=== PATIENT | male | born 1935 | race Caucasian/White ===

== ENCOUNTER 2018-11-24 13:21 | Inpatient (IN) | payer OTHER, MEDICARE ==
--- OUTSIDE RECORDS SUMMARY | 2018-11-24 13:23 | XMS REPORT | Clinical Summary ---
:1935 Author Organization [facility] Address [address] [place] [address] Care Team Providers Name Role Phone Unavailable Primary Care Provider Unavailable Allergies Active Allergy Reactions Severity Noted Date Comments Hydralazine Analogues Rash Low 06/23/2016 Medications Medication Sig Dispensed Refills Start Date End Date Status amLODIPine (NORVASC) 5 0 03/14/2016 Active MG tablet atorvastatin (LIPITOR) 40 mg daily . 0 06/03/2016 Active 40 MG tablet triamterene-hydrochloro 0 03/28/2016 Active thiazide (MAXZIDE-25) 37.5-25 mg per tablet venlafaxine 150 mg nightly . 0 05/14/2016 Active (EFFEXOR-XR) 150 MG 24 hr capsule levothyroxine Take 100 mcg by 0 Active (SYNTHROID, LEVOTHROID) mouth Every 100 MCG tablet morning on an empty stomach. aspirin 81 MG EC tablet Take 81 mg by 0 Active mouth daily. XARELTO 10 mg Tab Take 2 tablets 90 tablet 0 06/27/2016 Active tablet (20 mg total) by mouth daily with dinner. Active Problems Problem Noted Date Atrial fibrillation, unspecified type 06/24/2016 Atrial fibrillation 06/21/2016 Social History Tobacco Use Types Packs/Day Years Used Date Former Smoker Alcohol Use Drinks/Week oz/Week Comments No Sex Assigned at Date Recorded Not on file Job Start Date Occupation Industry Not on file Not on file Not on file Travel History Travel Start Travel End No recent travel history available. Last Filed Vital Signs Not on file Plan of Treatment Not on file Results Not on fileafter 11/23/2017 Insurance Payer Benefit Plan / Group Subscriber ID Type Phone Address MEDICARE MEDICARE A B xxxxxxxxxx Medicare MCR SUPPLEMENT/INDIVIDUAL AARP/[facility] xxxxxxxxxxx Medigap Advance Directives For more information, please contact:[place] [address] [address] [facility] [place] [phone] Code Status Date Activated Date Inactivated Comments Full Code 06/21/2016 10:22 PM 06/27/2016 7:26 PM This code status was determined by: Patient
[2018-11-24] MEDS ORDERED: NA CHLORIDE 0.9% 1,000 ML ONE ×2 (14:17→19:46)
--- NOTE | 2018-11-24 14:27 | RAD REPORT ---
EXAM DESCRIPTION: RAD - Chest Single View - 11/24/2018 1:56 pm CLINICAL HISTORY: COPD Chest pain. COMPARISON: Chest Single View dated 02/08/2017; Chest Single View dated 10/06/2016; Chest Single View dated 10/05/2016; CHEST PA AND LAT 2 VIEW dated 08/29/2011 FINDINGS: Portable technique limits examination quality. The lungs are grossly clear. The heart is mildly prominent size. No displaced fractures. IMPRESSION: No acute intrathoracic process suspected.
[2018-11-24 14:41] LABS: Absolute Lymphocytes (CBC) 1.5 K/uL (0.7-4.9); Basophils % 0.8 % (0-1.3); Eosinophils % 0.2 % (0-4.4); Lymphocytes % 16.9 % (15.3-44.8); Monocytes % 14.9 % (3.3-12.3); RBC Red Blood Cell Count 4.34 M/uL (4.33-5.43)
[2018-11-24 14:48] LABS: Protime INR 1.79
[2018-11-24 15:04] LABS: Albumin 3.4 g/dL (3.4-5.0); Bilirubin Direct 0.2 mg/dL (0-0.2); Bilirubin Total 0.7 mg/dL (0.2-1.0); Potassium 4.3 mmol/L (3.5-5.1); Troponin (Emerg Dept Use Only) 0.23 ng/mL (0.0-0.045)
[2018-11-24 15:47] LABS: Arterial Blood Carboxyhemoglob 0.9 % (0-1.5); Blood Gas Oxyhemoglobin 92.4 % (94-97)
[2018-11-24] MEDS ORDERED: IPRATROPIUM BROM 0.5MG/2.5ML ONE ×2 (15:53→22:10)
[2018-11-24] MEDS ORDERED: ALBUTEROL 2.5 MG/3 ML NEB SOL ONE ×2 (15:53→22:09)
[2018-11-24 16:20] LABS: Urine Bacteria LOADED /HPF (NONE SEEN)
[2018-11-24 16:21] LABS: Urine Culture Reflex Order REFLEXED
[2018-11-24 16:22] LABS: Urine Blood 2+ (NEG); Urine Glucose NEGATIVE (NEG); Urine Protein 2+ (NEG); Urine Specific Gravity 1.025 (1.005-1.030); Urine pH 5.5 (5.0-7.0)
--- NOTE | 2018-11-24 16:42 | EDPHYS ---
Physician Documentation [facility] Name: Bill Groves Age: 83 yrs Sex: Male : 1935 Arrival Date: 11/24/2018 Time: 13:24 Bed 14 Private MD: Pete lAmeida T ED Physician Santo Cuenca HPI: 11/24 17:45 This 83 yrs old Male presents to ER via Wheelchair with complaints of gs Weakness. 17:45 Onset: The symptoms/episode began/occurred 2 day(s) ago. gs 18:22 The patient presents to the emergency department with weakness of the entire body, gs generalized weakness. Associated signs and symptoms: Pertinent positives: falling. Severity of symptoms: At their worst the symptoms were severe in the emergency department the symptoms are unchanged. The patient has experienced similar episodes in the past, a few times. Historical: - Allergies: 13:27 HYDRALAZINE; la1 - PMHx: 13:27 Atrial Fib; CVA x4; Hypertension; la1 - Immunization history:: Adult Immunizations up to date. - Social history:: Smoking status: Patient/guardian denies using tobacco. - Ebola Screening: : No symptoms or risks identified at this time. ROS: 18:26 All other systems are negative. gs Exam: 18:26 Head/Face: Normocephalic, atraumatic. Eyes: Pupils equal round and reactive to light, gs extra-ocular motions intact. Lids and lashes normal. Conjunctiva and sclera are non-icteric and not injected. Cornea within normal limits. Periorbital areas with no swelling, redness, or edema. ENT: Nares patent. No nasal discharge, no septal abnormalities noted. Tympanic membranes are normal and external auditory canals are clear. Oropharynx with no redness, swelling, or masses, exudates, or evidence of obstruction, uvula midline. Mucous membranes moist. Neck: Trachea midline, no thyromegaly or masses palpated, and no cervical lymphadenopathy. Supple, full range of motion without nuchal rigidity, or vertebral point tenderness. No Meningismus. Chest/axilla: Normal chest wall appearance and motion. Nontender with no deformity. No lesions are appreciated. 18:26 Abdomen/GI: Soft, non-tender, with normal bowel sounds. No distension or tympany. No guarding or rebound. No evidence of tenderness throughout. Back: No spinal tenderness. No costovertebral tenderness. Full range of motion. Skin: Warm, dry with normal turgor. Normal color with no rashes, no lesions, and no evidence of cellulitis. MS/ Extremity: Pulses equal, no cyanosis. Neurovascular intact. Full, normal range of motion. Neuro: Awake and alert, GCS 15, oriented to person, place, time, and situation. Cranial nerves II-XII grossly intact. Motor strength 5/5 in all extremities. Sensory grossly intact. Cerebellar exam normal. Normal gait. 18:26 Constitutional: The patient appears alert, awake. 18:26 Cardiovascular: Rate: normal, Rhythm: irregularly irregular, Pulses: no pulse deficits are appreciated, Edema: 1+ edema to level of left ankle and right ankle. 18:26 ECG was reviewed by the Attending Physician. 18:26 Respiratory: the patient does not display signs of respiratory distress, Respirations: normal, Breath sounds: rhonchi, that are moderate, are heard diffusely. Vital Signs: 13:29 BP 80 / 51; Pulse 72; Resp 16; Temp 97.4; Pulse Ox 95% on R/A; Weight 79.38 kg; Height la1 5 ft. 9 in. (175.26 cm); 14:29 BP 92 / 52; Pulse 60; Resp 17; Temp 97.7(TE); Pulse Ox 96% on R/A; Pain 0/10; rb1 15:23 BP 142 / 94; Pulse 72; Resp 18; Temp 97.8(O); Pulse Ox 97% on R/A; mh5 16:33 BP 102 / 61; Pulse 88; Resp 19; Temp 98.1(TE); Pulse Ox 99% on R/A; mh5 17:30 BP 108 / 63; Pulse 81; Resp 18; Temp 97.9(TE); Pulse Ox 96% on R/A; Pain 4/10; rb1 18:41 BP 101 / 80; Pulse 95; Resp 20; Temp 98.6(TE); Pulse Ox 97% on R/A; mh5 19:00 BP 84 / 37; Pulse 88; Resp 26 S; Pulse Ox 96% on R/A; cc3 19:30 BP 70 / 50; Pulse 84; Resp 26 S; Temp 97.6(O); Pulse Ox 97% on R/A; cc3 19:43 BP 76 / 53; Pulse 81; Resp 25 S; Temp 97.6(O); Pulse Ox 94% on R/A; cc3 19:54 BP 88 / 56; Pulse 81; Resp 20 S; Pulse Ox 96% on R/A; cc3 20:00 BP 88 / 51; Pulse 76; Resp 24 S; Pulse Ox 96% on R/A; cc3 20:09 BP 102 / 52; Pulse 73; Resp 22 S; Pulse Ox 97% on R/A; cc3 20:30 BP 110 / 55; Pulse 71; Resp 19 S; Pulse Ox 96% on R/A; cc3 21:30 BP 107 / 50; Pulse 70; Resp 20 S; Pulse Ox 96% on R/A; cc3 22:05 BP 105 / 57; Pulse 73; Resp 20 S; Pulse Ox 96% on R/A; cc3 13:29 Body Mass Index 25.84 (79.38 kg, 175.26 cm) la1 MDM: 14:29 Patient medically screened. 18:26 Data reviewed: vital signs, nurses notes, old medical records, lab test result(s), EKG. gs Response to treatment: the patient's symptoms have markedly improved after treatment, and as a result, I will admit patient. ED course: mi,weakness,bronchitis,sepsis,dehydration. 11/24 13:43 Order name: Basic Metabolic Panel 11/24 13:43 Order name: Blood Culture Adult (2) 11/24 13:43 Order name: CBC with Diff 11/24 13:43 Order name: CPK 11/24 13:43 Order name: Lactate; Complete Time: 15:09 11/24 13:43 Order name: LFT's; Complete Time: 15:09 11/24 13:43 Order name: Lipase; Complete Time: 15:09 11/24 13:43 Order name: Procalcitonin; Complete Time: 15:44 11/24 13:43 Order name: Protime (+inr); Complete Time: 14:55 11/24 13:43 Order name: Troponin (emerg Dept Use Only); Complete Time: 15:09 11/24 13:43 Order name: Urine Microscopic Only; Complete Time: 16:25 11/24 13:44 Order name: Basic Metabolic Panel; Complete Time: 15:09 EDOR 11/24 13:44 Order name: Blood Culture EDOR 11/24 13:44 Order name: CBC with Automated Diff; Complete Time: 14:55 EDOR 11/24 13:43 Order name: Chest Single View XRAY; Complete Time: 14:29 11/24 13:43 Order name: Accucheck; Complete Time: 14:51 11/24 13:43 Order name: Cardiac monitoring; Complete Time: 14:51 11/24 13:43 Order name: EKG - Nurse/Tech; Complete Time: 15:50 11/24 13:43 Order name: IV Saline Lock - Large Bore; Complete Time: 14:51 11/24 13:43 Order name: Labs collected and sent; Complete Time: 14:51 11/24 13:43 Order name: O2 Per Protocol; Complete Time: 14:51 11/24 13:47 Order name: Creatine Phosphokinase; Complete Time: 15:09 EDOR 11/24 15:07 Order name: ABG 11/24 15:36 Order name: Urine Dipstick--Ancillary (enter results); Complete Time: 16:25 ms 11/24 16:23 Order name: Urine Culture [facility] 11/24 13:43 Order name: O2 Sat Monitoring; Complete Time: 14:51 11/24 13:43 Order name: Urine Dipstick-Ancillary (obtain specimen); Complete Time: 15:35 gs EC:26 Rate is 89 beats/min. Rhythm is irregularly irregular. QRS interval is normal. QT gs interval is normal. T waves are Flattened. Clinical impression: Abnormal EKG without significant change and Atrial Fibrillation. Interpreted by me. Administered Medications: 14:25 Drug: NS 0.9% 1000 ml {Note: right upper arm.} Route: IV; Rate: 1 bolus; Site: Other; rb1 15:50 Follow up: IV Status: Completed infusion rb1 15:49 Drug: Albuterol 2.5 mg Route: Inhalation; rb1 15:49 Drug: AtroVENT Aerosol 0.5 mg Route: Inhalation; rb1 16:47 Drug: Tylenol 650 mg Route: PO; rb1 17:16 Follow up: Response: No adverse reaction; Pain is decreased rb1 17:09 Drug: Rocephin 1 grams {Note: Dr. Cuenca ordered to given the Rocephin without the 2nd rb1 set of Blood Cultures being drawn.} Route: IV; Rate: calculated rate; Site: right antecubital; 17:40 Follow up: Response: No adverse reaction; IV Status: Completed infusion rb1 Disposition: 11/24/18 16:41 Hospitalization ordered by Lucy Desai for Inpatient Admission. Preliminary diagnosis are Non-ST elevation (NSTEMI) myocardial infarction, Acute bronchitis, Urinary tract infection, site not specified, Hypotension. - Bed requested for Intensive Care Unit. - Status is Inpatient Admission. cc3 - Condition is Stable. - Problem is new. - Symptoms have improved. UTI on Admission? Yes Critical care time excluding procedures: 16:38 Critical care time: Bedside Care: 10 minutes, Consultation: 10 minutes, Family gs Intervention: 10 minutes. Total time: 30 minutes Signatures: Dispatcher [employer] EDMS Miryam Conway ms, Lee, RN RN laTania Vang RN RN Gosia Hill RN RN rb1 Santo Cuenca MD MD Masha Reynolds cc3 Corrections: (The following items were deleted from the chart) 16:42 16:41 Hospitalization Ordered by Lucy Desai MD for Inpatient Admission. Preliminary diagnosis is Non-ST elevation (NSTEMI) myocardial infarction; Acute bronchitis; Urinary tract infection, site not specified. Bed requested for Telemetry/MedSurg (Inpatient). Status is Inpatient Admission. Condition is Stable. Problem is new. Symptoms have improved. UTI on Admission? Yes. 18:36 16:42 11/24/2018 16:41 Hospitalization Ordered by Lucy Desai MD for Inpatient ms Admission. Preliminary diagnosis is Non-ST elevation (NSTEMI) myocardial infarction; Acute bronchitis; Urinary tract infection, site not specified; Hypotension. Bed requested for Telemetry/MedSurg (Inpatient). Status is Inpatient Admission. Condition is Stable. Problem is new. Symptoms have improved. UTI on Admission? Yes. 21:19 18:36 11/24/2018 16:41 Hospitalization Ordered by Lucy Desai MD for Inpatient cg Admission. Preliminary diagnosis is Non-ST elevation (NSTEMI) myocardial infarction; Acute bronchitis; Urinary tract infection, site not specified; Hypotension. Bed requested for Telemetry/MedSurg (Inpatient). Status is Inpatient Admission. Condition is Stable. Problem is new. Symptoms have improved. UTI on Admission? Yes. ms 22:14 21:19 11/24/2018 16:41 Hospitalization Ordered by Lucy Desai MD for Inpatient cc3 Admission. Preliminary diagnosis is Non-ST elevation (NSTEMI) myocardial infarction; Acute bronchitis; Urinary tract infection, site not specified; Hypotension. Bed requested for Intensive Care Unit. Status is Inpatient Admission. Condition is Stable. Problem is new. Symptoms have improved. UTI on Admission? Yes. cg
--- NOTE | 2018-11-24 16:42 | ER ---
Nurse's Notes [facility] Name: Bill Groves Age: 83 yrs Sex: Male : 1935 Arrival Date: 11/24/2018 Time: 13:24 Bed 14 Private MD: Pete Almeida T Diagnosis: Non-ST elevation (NSTEMI) myocardial infarction;Acute bronchitis;Urinary tract infection, site not specified;Hypotension Presentation: 11/24 13:27 Presenting complaint: Child states: Increased difficulty in transferring, some la1 weakness, and at home his BP was 79/50s. He has also had a cough. Transition of care: patient was not received from another setting of care. Onset of symptoms was November 24, 2018. Risk Assessment: Do you want to hurt yourself or someone else? Patient reports no desire to harm self or others. Initial Sepsis Screen: Does the patient meet any 2 criteria? No. Patient's initial sepsis screen is negative. Does the patient have a suspected source of infection? No. Patient's initial sepsis screen is negative. Care prior to arrival: None. 13:27 Method Of Arrival: Wheelchair la1 13:27 Acuity: ANDI 2 la1 Historical: - Allergies: 13:27 HYDRALAZINE; la1 - PMHx: 13:27 Atrial Fib; CVA x4; Hypertension; la1 - Immunization history:: Adult Immunizations up to date. - Social history:: Smoking status: Patient/guardian denies using tobacco. - Ebola Screening: : No symptoms or risks identified at this time. Screenin:35 Abuse screen: Denies threats or abuse. Nutritional screening: No deficits noted. rb1 Tuberculosis screening: No symptoms or risk factors identified. 19:00 Fall Risk Ambulatory Aid- None/Bed Rest/Nurse Assist (0 pts). Gait- Weak (10 pts.). cc3 Mental Status- Oriented to own ability (0 pts). Assessment: 13:35 General: Appears in no apparent distress. comfortable, Behavior is calm, cooperative, rb1 Denies fever. Pain: Denies pain. Neuro: Level of Consciousness is awake, alert, obeys commands, Oriented to person, place, time, situation. Neuro: Reports weakness generalized weakness. Had trouble getting up this morning. Cardiovascular: Capillary refill < 3 seconds is brisk in bilateral fingers. Respiratory: Airway is patent Respiratory effort is even, unlabored, Respiratory pattern is regular, symmetrical. GI:. : incontinence. Derm: Skin is pink, warm \T\ dry. Musculoskeletal: Range of motion: limited in left arm. 14:30 Reassessment: Patient appears in no apparent distress at this time. No changes from rb1 previously documented assessment. Family at bedside. 15:28 Reassessment: Patient appears in no apparent distress at this time. Patient and/or rb1 family updated on plan of care and expected duration. Pain level reassessed. Patient is alert, oriented x 3, equal unlabored respirations, skin warm/dry/pink. Family at bedside. 16:27 Reassessment: Patient appears in no apparent distress at this time. No changes from rb1 previously documented assessment. Family at bedside. 17:10 Reassessment: Dr. Cuenca notified that we are unable to collect a second set of blood rb1 cultures due to the pt. being a hard stick. Received order to administer the Rocephin without it. I called the lab to notify them that the second set of cultures was canceled per Dr. Cuenca. 18:10 Reassessment: Patient appears in no apparent distress at this time. Patient and/or rb1 family updated on plan of care and expected duration. Pain level reassessed. Patient is alert, oriented x 3, equal unlabored respirations, skin warm/dry/pink. Family at bedside. 19:15 Reassessment: Patient and/or family updated on plan of care and expected duration. Pain cc3 level reassessed. Patient is alert, oriented x 3, equal unlabored respirations, skin warm/dry/pink. Received this male patient from morning shift DANG Elise as a case of generalized weakness, blood pressure has been constantly on the low side as endorsed. Encouraged patient to lie flat on his bed. General: Appears in no apparent distress. uncomfortable, Behavior is calm, cooperative, appropriate for age. Pain: Complains of pain in back. Neuro: Level of Consciousness is awake, alert, obeys commands, Oriented to person, place, time, situation, Appropriate for age. Cardiovascular: Denies chest pain, Capillary refill < 3 seconds Rhythm is sinus rhythm. Respiratory: Airway is patent Respiratory effort is even, unlabored, Respiratory pattern is regular, symmetrical. GI: Abdomen is round non-distended. : No signs and/or symptoms were reported regarding the genitourinary system. EENT: No signs and/or symptoms were reported regarding the EENT system. Derm: Bruising that is dark purple, on bilateral arms. 20:20 Reassessment: Patient and/or family updated on plan of care and expected duration. Pain cc3 level reassessed. Patient is alert, oriented x 3, equal unlabored respirations, skin warm/dry/pink. Charge nurse Babs said the patient will be for ICU so instead in room 228, will wait for ICU bed availability. Dr. Atkins at bedside assessing the patient. Ordered ongoing IV fluids of NS at 75 mL/hr to increase to 125 mL/hr. 21:17 Reassessment: Patient appears in no apparent distress at this time. Patient and/or cc3 family updated on plan of care and expected duration. Pain level reassessed. Patient is alert, oriented x 3, equal unlabored respirations, skin warm/dry/pink. 21:50 Reassessment: Patient appears in no apparent distress at this time. Patient and/or cc3 family updated on plan of care and expected duration. Pain level reassessed. Patient is alert, oriented x 3, equal unlabored respirations, skin warm/dry/pink. Room available in ICU bed 3, called for report but was told that the nurse who will receive will just call me back, charge nurse Babs informed. 22:00 Reassessment: Patient appears in no apparent distress at this time. Patient and/or cc3 family updated on plan of care and expected duration. Pain level reassessed. Patient is alert, oriented x 3, equal unlabored respirations, skin warm/dry/pink. CDL INSTRUCTOR Tony called and report handed over to her for continuity of care and management, respiratory therapist came and gave nebulization treatments for the patient. 22:14 Reassessment: Patient appears in no apparent distress at this time. Patient and/or cc3 family updated on plan of care and expected duration. Pain level reassessed. Patient is alert, oriented x 3, equal unlabored respirations, skin warm/dry/pink. Called patient's daughter named Shanthi at her mobile number [phone] and informed her that patient is ICU admission bed 3. Patient left ER vitally stable by stretcher escorted by dc and infectious disease technician Liya. Patient states symptoms have improved. Vital Signs: 13:29 BP 80 / 51; Pulse 72; Resp 16; Temp 97.4; Pulse Ox 95% on R/A; Weight 79.38 kg; Height la1 5 ft. 9 in. (175.26 cm); 14:29 BP 92 / 52; Pulse 60; Resp 17; Temp 97.7(TE); Pulse Ox 96% on R/A; Pain 0/10; rb1 15:23 BP 142 / 94; Pulse 72; Resp 18; Temp 97.8(O); Pulse Ox 97% on R/A; mh5 16:33 BP 102 / 61; Pulse 88; Resp 19; Temp 98.1(TE); Pulse Ox 99% on R/A; mh5 17:30 BP 108 / 63; Pulse 81; Resp 18; Temp 97.9(TE); Pulse Ox 96% on R/A; Pain 4/10; rb1 18:41 BP 101 / 80; Pulse 95; Resp 20; Temp 98.6(TE); Pulse Ox 97% on R/A; mh5 19:00 BP 84 / 37; Pulse 88; Resp 26 S; Pulse Ox 96% on R/A; cc3 19:30 BP 70 / 50; Pulse 84; Resp 26 S; Temp 97.6(O); Pulse Ox 97% on R/A; cc3 19:43 BP 76 / 53; Pulse 81; Resp 25 S; Temp 97.6(O); Pulse Ox 94% on R/A; cc3 19:54 BP 88 / 56; Pulse 81; Resp 20 S; Pulse Ox 96% on R/A; cc3 20:00 BP 88 / 51; Pulse 76; Resp 24 S; Pulse Ox 96% on R/A; cc3 20:09 BP 102 / 52; Pulse 73; Resp 22 S; Pulse Ox 97% on R/A; cc3 20:30 BP 110 / 55; Pulse 71; Resp 19 S; Pulse Ox 96% on R/A; cc3 21:30 BP 107 / 50; Pulse 70; Resp 20 S; Pulse Ox 96% on R/A; cc3 22:05 BP 105 / 57; Pulse 73; Resp 20 S; Pulse Ox 96% on R/A; cc3 13:29 Body Mass Index 25.84 (79.38 kg, 175.26 cm) la1 ED Course: 13:24 Patient arrived in ED. dl4 13:25 Pete Almeida MD is Private Physician. dl4 13:29 Triage completed. la1 13:29 Arm band placed on right wrist. la1 13:42 Santo Cuenca MD is Attending Physician. gs 13:52 Gosia Hill, DANG is Primary Nurse. rb1 13:59 Chest Single View XRAY In Process Unspecified. EDMS 14:15 Missed attempt(s): 22 gauge in right antecubital area. rb1 14:25 Inserted saline lock: 22 gauge in right upper arm, using aseptic technique. Blood rb1 collected. 15:34 Urine collected: clean catch specimen, cloudy, Amount Voided: 100mL. mh5 15:34 Urine Microscopic Only Sent. mh5 15:40 Patient has correct armband on for positive identification. Placed in gown. Bed in low mh5 position. Call light in reach. Side rails up X 1. Adult w/ patient. Warm blanket given. Pulse ox on. NIBP on. 16:38 Lucy Desai MD is Hospitalizing Provider. gs 19:00 Report given to DANG Flanagan. rb1 22:00 No provider procedures requiring assistance completed. Patient admitted, IV remains in cc3 place. Administered Medications: 14:25 Drug: NS 0.9% 1000 ml {Note: right upper arm.} Route: IV; Rate: 1 bolus; Site: Other; rb1 15:50 Follow up: IV Status: Completed infusion rb1 15:49 Drug: Albuterol 2.5 mg Route: Inhalation; rb1 15:49 Drug: AtroVENT Aerosol 0.5 mg Route: Inhalation; rb1 16:47 Drug: Tylenol 650 mg Route: PO; rb1 17:16 Follow up: Response: No adverse reaction; Pain is decreased rb1 17:09 Drug: Rocephin 1 grams {Note: Dr. Cuenca ordered to given the Rocephin without the 2nd rb1 set of Blood Cultures being drawn.} Route: IV; Rate: calculated rate; Site: right antecubital; 17:40 Follow up: Response: No adverse reaction; IV Status: Completed infusion rb1 Outcome: 16:41 Decision to Hospitalize by Provider. gs 22:00 Admitted to ICU accompanied by nurse, accompanied by tech, via stretcher, room 3, with cc3 oxygen, on monitor, with chart, Report called to DANG Barnett 22:00 Condition: stable 22:00 Instructed on the need for admit, Demonstrated understanding of instructions. 22:14 Patient left the ED. cc3 Signatures: Dispatcher [employer] EDMS Herb Atkinson RN RN la1 Gosia Hill RN RN rb1 Miryam Steel 5 Santo Cuenca MD MD gs Cordel, Charlene cc3 Pete Nevarez dl4 Corrections: (The following items were deleted from the chart) 15:41 15:23 BP 142 / 94; Pulse 72bpm; Resp 18bpm; Pulse Ox 97% RA; mh5 mh5 16:49 13:35 Musculoskeletal: Range of motion: intact in all extremities, rb1 rb1 23:27 20:20 Reassessment: Patient and/or family updated on plan of care and expected cc3 duration. Pain level reassessed. Patient is alert, oriented x 3, equal unlabored respirations, skin warm/dry/pink. Charge nurse Babs said the patient will be for ICU so instead in room 288, will wait for ICU bed availability. Dr. Atkins at bedside assessing the patient. Ordered ongoing IV fluids of NS at 75 mL/hr to 125 mL/hr. cc3
[2018-11-24] MEDS ORDERED: CEFTRIAXONE/SWI 1gm 1 GM/10 ML SYR ONE (16:56)
[2018-11-24] MEDS ORDERED: ACETAMINOPHEN 325 MG TABLET ONE (17:01)
--- NOTE | 2018-11-24 18:19 | P.HP ---
Patient History Date of Service: 11/25/18 Reason for admission: generalzied weaknes and fatigue History of Present Illness: 83 y/o man with pmhx of HTN,Afib ,hypothyordism,stroke with residual left sided weakness presented to ER with generzliaed weaknes and fatigue and according to the family he was unable to stand up today.pt was having cough for the last few days with congestion and no fever .accoridng to pt she noticed his urine is dark in last few days .o ,in ER pt was found with DAVID and UA +ve for UTI and his troponin were elevated but pt denied any CP ,SOB ,palpitation .also pt denied recent travel ,fever,n/v or diarrhea.,headache or any other complains . Allergies hydralazine Allergy (Unknown, Verified 06/08/17 21:09) Rash Home medications list reviewed: Yes Home Medications: Atorvastatin Calcium [Lipitor] 40 mg PO BEDTIME #30 tab 10/21/16 Levothyroxine [Synthroid*] 0.1 mg PO [id number] tab 10/21/16 Quetiapine [Seroquel*] 25 mg PO BEDTIME #30 tab 10/21/16 Venlafaxine HCl *Xr* [Effexor XR] 150 mg PO BEDTIME cap 10/21/16 Spironolactone [Aldactone*] 25 mg PO DAILY 11/06/16 Albuterol Inhaler [Ventolin Inhaler*] 2 puff IH Q6H PRN #1 hfa.aer.ad 02/09/17 Acetaminophen [Tylenol] 650 mg PO Q4HP PRN 06/08/17 Carvedilol 12.5 mg PO BIDWM 06/08/17 Hydrocodone 5/APAP 325 [[place] 5/325*] 1 tab PO Q6H PRN 06/08/17 Losartan Potassium [Cozaar*] 50 mg PO DAILY 06/08/17 Tramadol HCl [Ultram] 50 mg PO Q6HP PRN 06/08/17 Gabapentin 600 mg PO BID #60 tablet 06/20/17 Rivaroxaban [Xarelto] 1 tab PO DAILY AT SUPPER 11/25/18 Zolpidem Tartrate 5 mg PO BEDTIME 11/25/18 - Past Medical/Surgical History Diabetic: No -: HTN -: Leukemia-dx 1960 on remission -: Hypothyroidism -: streptococcal sepsis -: CKD -: Afib. -: CHF -: CVA -: depression -: OA -: cancer -: left arm surgery - hx of fx and had it reset -: cholecystectomy - Family History Father -: Cancer Mother -: Cancer Brother -: Cancer Notes: both brothers had cancer - Social History Smoking Status: Former smoker Alcohol use: No CD- Drugs: No Caffeine use: No Review of Systems 10-point ROS is otherwise unremarkable Physical Examination - Physical Exam General: Alert, In no apparent distress, Oriented x3 HEENT: Atraumatic, Normocephalic, PERRLA Neck: Supple, JVD not distended Respiratory: Normal air movement, Expiratory wheezes, Inspiratory wheezes Cardiovascular: Regular rate/rhythm, Normal S1 S2, Edema Gastrointestinal: Normal bowel sounds, Soft and benign, Non-distended Musculoskeletal: No clubbing, Swelling Integumentary: No rashes Neurological: Normal speech, Abnormal gait, Abnormal strength - Studies Laboratory Data (last 24 hrs) 11/24/18 14:25: PT 20.7 H, INR 1.79 11/24/18 14:25: WBC 8.8, Hgb 13.2 L, Hct 40.0, Plt Count 186 11/24/18 14:25: Sodium 139, Potassium 4.3, BUN 26 H, Creatinine 2.19 H, Glucose 88, Total Bilirubin 0.7, AST 23, ALT 26, Alkaline Phosphatase 83, Lipase 89 Assessment and Plan - Problems (Diagnosis) (1) Elevated troponin Current Visit: Yes Status: Acute (2) UTI (urinary tract infection) Current Visit: Yes Status: Acute (3) CKD (chronic kidney disease) Current Visit: No Status: Chronic Qualifiers: (4) Congestive heart failure Current Visit: No Status: Chronic Qualifiers: (5) Hypertension Current Visit: No Status: Chronic Qualifiers: - Plan assessment /plan: UTI elevated troponins :no CP or SOB and EKG unremarkable -DAVID vs NSTEMI DAVID Afib HTN hypothyrodism plan: admit IP start on rocephin and f/up UCx serial CE and EKG telemetry monitoring cardiology consult ECHO nebulizers o2 prn IVF hydration monitor BUn/CR nephrology consult avoid nephrotoxic meds will consider renal US if renal function didnt improve with IVF hydration continue xarelto for Afib resume coreg for HTN hold losartan and spironlactone for now in view of his DAVID resume other home meds dvt ppx with xarelto - Advance Directives Does patient have a Living Will: Yes Does patient have a Durable POA for Healthcare: Yes
[2018-11-24] MEDS: NA CHLORIDE 0.9% 1,000 ML IV SCH (19:40)
[2018-11-24] MEDS: VENLAFAXINE HCL 75 MG TABLET PO SCH (21:31)
[2018-11-24] MEDS: QUETIAPINE 25 MG TAB PO SCH (21:31)
[2018-11-24] MEDS: GABAPENTIN 300 MG CAP PO SCH (21:31)
[2018-11-24] MEDS: ROSUVASTATIN 10 MG TAB PO SCH (21:31)
[2018-11-24] MEDS: CARVEDILOL 6.25 MG TAB PO SCH (21:31)
[2018-11-24] MEDS: IPRATROPIUM BROM 0.5MG/2.5ML NEB SCH ×2 (21:32→22:00)
[2018-11-24] MEDS: ALBUTEROL 2.5 MG/3 ML NEB SOL NEB SCH ×2 (21:32→22:00)
[2018-11-25] MEDS: QUETIAPINE 25 MG TAB PO SCH ×2 (01:31→21:07)
[2018-11-25] MEDS: IPRATROPIUM BROM 0.5MG/2.5ML NEB SCH ×4 (02:00→19:40)
[2018-11-25] MEDS: ALBUTEROL 2.5 MG/3 ML NEB SOL NEB SCH ×4 (02:00→19:40)
[2018-11-25 06:18] LABS: Albumin 2.6 g/dL (3.4-5.0); Bilirubin Total 0.7 mg/dL (0.2-1.0); Protein, Total 6.4 g/dL (6.4-8.2)
[2018-11-25] MEDS: LEVOTHYROXINE SOD 0.1 MG TAB PO SCH (07:35)
[2018-11-25] MEDS ORDERED: ASPIRIN 81 MG CHEWABLE TABLET PO ONE (08:00)
[2018-11-25] MEDS ORDERED: CLOPIDOGREL 75 MG TABLET PO ONE (08:00)
[2018-11-25] MEDS: CARVEDILOL 6.25 MG TAB PO SCH ×2 (08:14→21:07)
[2018-11-25] MEDS: CEFTRIAXONE/SWI 1gm 1 GM/10 ML SYR IVP SCH (08:15)
[2018-11-25] MEDS: VENLAFAXINE HCL 75 MG TABLET PO SCH ×2 (08:15→21:07)
[2018-11-25] MEDS: NA CHLORIDE 0.9% 1,000 ML IV SCH ×4 (08:15→23:00)
[2018-11-25] MEDS ORDERED: CEFTRIAXONE 1 GM/NS 50 ML 1 GM/50 ML BAG IV SCH (09:00)
--- NOTE | 2018-11-25 10:37 | EKG ---
Test Date: 2018-11-24 Test Time: 15:05:50 Head Refrigeration Engineer: EM MEASUREMENT RESULTS: Intervals: Rate: 89 MT: QRSD: 66 QT: 380 QTc: 462 [place]: P: MT: QRS: 7 T: -19 INTERPRETIVE STATEMENTS: Sinus rhythm Nonspecific ST and T wave abnormality, probably digitalis effect Prolonged QT Abnormal ECG Compared to ECG 02/08/2017 13:23:30 no significant change from previous ECG Electronically Signed On 11-25-18 10:37:17 CDT by Antwon Alvares
--- NOTE | 2018-11-25 10:56 | P.PN ---
Subjective Date of Service: 11/25/18 Chief Complaint: generalzied weaknes and fatigue pt seen and examined denied CP or SOB labs reviewed Review of Systems 10-point ROS is otherwise unremarkable Physical Examination - Vital Signs Temperature: 97.4 F Blood Pressure: 105/49 Pulse: 65 Respirations: 16 Pulse Ox (%): 99 - Physical Exam General: Alert, In no apparent distress, Oriented x3 HEENT: Atraumatic, Normocephalic, PERRLA Neck: Supple Respiratory: Clear to auscultation bilaterally, Normal air movement Cardiovascular: No edema, Regular rate/rhythm, Normal S1 S2 Gastrointestinal: Normal bowel sounds, Soft and benign, Non-distended Musculoskeletal: No clubbing Integumentary: No rashes Neurological: Normal speech, Abnormal strength - Studies Laboratory Data (last 24 hrs) 11/24/18 14:25: PT 20.7 H, INR 1.79 11/24/18 14:25: WBC 8.8, Hgb 13.2 L, Hct 40.0, Plt Count 186 11/24/18 14:25: Sodium 139, Potassium 4.3, BUN 26 H, Creatinine 2.19 H, Glucose 88, Total Bilirubin 0.7, AST 23, ALT 26, Alkaline Phosphatase 83, Lipase 89 Assessment And Plan - Current Problems (Diagnosis) (1) Elevated troponin Current Visit: Yes Status: Acute (2) UTI (urinary tract infection) Current Visit: Yes Status: Acute (3) CKD (chronic kidney disease) Current Visit: No Status: Chronic Qualifiers: (4) Congestive heart failure Current Visit: No Status: Chronic Qualifiers: (5) Hypertension Current Visit: No Status: Chronic Qualifiers: - Plan assessment /plan: UTI elevated troponins :no CP or SOB and EKG unremarkable due to DAVID vs NSTEMI DAVID Afib HTN hypothyrodism plan: admit IP start on rocephin and f/up UCx ASA,plavix serial CE and EKG telemetry monitoring cardiology consult ECHO nebulizers o2 prn IVF hydration monitor BUn/CR nephrology consult avoid nephrotoxic meds continue xarelto for Afib resume coreg for HTN hold losartan and spironlactone for now in view of his DAVID resume other home meds dvt ppx with xarelto
--- NOTE | 2018-11-25 12:03 | CON ---
History Of Present Illness: Mr. Groves is 83. He came to the hospital with confusion and found to h ave signs and symptoms of urinary tract sepsis. He seems to be getting a little better now. He is o n chronic Xarelto therapy for paroxysmal atrial fib. He is in sinus rhythm presently. He has no com plaints. Denies shortness of breath or chest pain. He had a hip fracture in June 2017 and had to stop Xarelto to be able to heal. There is a lot of bleeding postop. Overall, he recovered quite ni kyrie. Physical Examination: General: The patient appears to be much older than his stated age of 83. He is alert, poorly conver rosemarie, seems confused, prefers not to talk, sitting in a chair. Heart: His heart rate was regular. Lungs: Clear. Extremities: Revealed mild edema, mild redness. Did not notice any sores. Laboratory Data: His electrocardiogram shows sinus rhythm, nonspecific ST and T-wave abnormality. H is troponins are abnormal. The troponins have been 0.63. 0.44, 0.23. His procalcitonin is elevated. Urine cultures are not yet back. His creatinine is 2.89. Impression: Mr. Groves is probably not having an acute coronary syndrome. We can do an echocardiogr am tomorrow and see if there is any change in his ejection fraction or regional wall motion analysis, but I suspect his troponin release is from septicemia. Mr. Groves is not a good candidate for dickin g any further revascularization. BRII/ADY Voice ID: [id number] Report ID: [id number]
[2018-11-25 12:22] LABS: Absolute Lymphocytes (CBC) 0.4 K/uL (0.7-4.9); Basophils % 0.4 % (0-1.3); Eosinophils % 0.4 % (0-4.4); Hematocrit 31.3 % (39.6-49.0); Lymphocytes % 3.5 % (15.3-44.8); Monocytes % 5.3 % (3.3-12.3); RBC Red Blood Cell Count 3.38 M/uL (4.33-5.43)
[2018-11-25 12:32] LABS: Potassium 3.8 mmol/L (3.5-5.1)
[2018-11-25] MEDS ORDERED: NA CHLORIDE 0.9% 500 ML IV SCH (13:00)
[2018-11-25 15:01] LABS: Blood Morphology Comment NOT SEEN (NOT SEEN); Platelet Estimate DECR; Toxic Granulation PRESENT
--- NOTE | 2018-11-25 16:52 | CON ---
Date of Consultation: 11/25/2018 Consulting Physician: Dr. Desai Reason For Consultation: Elevated BUN and creatinine, fluid management. History Of Present Illness: This is a pleasant 83-year-old gentleman with significant past medical h istory of hypertension, atrial fibrillation, CVA with left-sided weakness, coronary artery disease. The patient came to the hospital with fatigue, weakness for the last few days, also complaining of co ugh with yellowish sputum. Upon arrival, primary workup show non-ST elevation NC, elevated BUN and c reatinine. For that reason, we have been consulted. Upon reviewing the record for the patient the p atient upon admission has low blood pressure down to 80 and 90. Also the patient being on spironolac tone and ARB. Reviewing the record, the patient back in June 2017, kidney function within normal limit with GFR 68. The patient denied taking any nonsteroidal. No recent IV contrast. No recent ch john in his medication. As I mentioned, the patient being on spironolactone and losartan. Past Medical History: 1.Include coronary artery disease complicated with congestive heart failure. 2.CVA with left-sided weakness. 3.Hypothyroidism. 4.Hypertension. 5.Hyperlipidemia. Allergies: TO HYDRALAZINE. Home Medications: 1.Atorvastatin. 2.Levothyroxine. 3.Venlafaxine. 4.Spironolactone. 5.Albuterol. 6.Carvedilol 12.5 b.i.d. 7.Hydrocodone. 8.Losartan 50 daily. 9.Tramadol. 10.Gabapentin. 11.Xarelto. 12.Ambien. Past Surgical History: Include left arm surgery, cholecystectomy. Family History: Positive for cancer and coronary artery disease. Social History: Ex-smoker. Denied alcohol. Denied drug abuse. Review of Systems: Head and Neck: No red eye. No ear pain. GI: Has decreased intake. : No polyuria. No dysuria. Has urine retention of 300. Cider Press Operator: Not applicable. Respiratory: Has no shortness of breath. Cardiovascular: Has leg swelling. Endocrine: No polydipsia. Skin: No rash. Neuro: Has altered mental status. Musculoskeletal: Generalized fatigue. Physical Examination: Vital Signs: When I saw the patient blood pressure 105/49, pulse of 68, afebrile. The patient had p laced a Boss, we had more than 300. Chest crackles on the left base. Heart: S1, S2. Regular with systolic murmur. Abdomen: Soft, dullness on the suprapubic. Extremity: Plus edema. Laboratory Data: WBC 8.8, H and H 13.2/40, platelet 186. Sodium 142, potassium 3.8, bicarb 22, BUN 43, creatinine 2.8, GFR of 21, calcium 7.4. Cardiac enzymes 0.63. Urinalysis positive for blood, po sitive for wbc. Current Medications: In the hospital include; 1.Aspirin. 2.Ceftriaxone. 3.Plavix. 4.Xarelto. 5.Carvedilol 6.25 b.i.d. 6.Crestor. 7.Gabapentin. 8.Effexor. 9.Breathing treatment. 10.IV fluid. Assessment And Plan: Acute kidney injury, mostly secondary to prerenal, poor perfusion, acute tubula r necrosis secondary to low blood pressure, superimposed with toxic acute tubular necrosis secondary to urinary tract infection, urosepsis superimposed with Aldactone and ARB and urine retention with ob structive uropathy. 1.I agree with Boss. We will follow up the renal ultrasound. We will send for full serology. The patient had complete normal kidney function 1 year back. 2.Hypertension, currently blood pressure on the lower side with the presence of acute kidney injury. Hold aldactone. Hold losartan. Hold all blood pressure medication. We will increase IV fluids. 3.Urosepsis with septic shock. I increased IV fluid. We will monitor the patient. We will give th e patient 500 of normal saline to maintain good blood pressure. 4.Urinary tract infection, agree with current antibiotic dose appropriate. 5.Atrial fibrillation as by Cardiology. ANDREY/ADY Voice ID: [id number] Report ID: [id number]
[2018-11-25] MEDS: RIVAROXABAN 15 MG TABLET PO SCH (16:56)
--- NOTE | 2018-11-25 19:54 | RAD REPORT ---
EXAM DESCRIPTION: US - Renal Ultrasound-Complete - 11/25/2018 7:47 pm CLINICAL HISTORY: . Acute renal insufficiency COMPARISON: None. FINDINGS: The right kidney measures 10 cm with a normal echotexture. 1.5 centimeters cyst The left kidney measures cm 10 with a normal echotexture. 4.3 centimeter cyst Hydronephrosis is not seen. Bladder is poorly evaluated as it is decompressed IMPRESSION: Bilateral renal cysts.
[2018-11-25] MEDS: ROSUVASTATIN 10 MG TAB PO SCH (21:06)
[2018-11-25] MEDS: GABAPENTIN 300 MG CAP PO SCH (21:07)
[2018-11-25] MEDS ORDERED: TRAMADOL HCL 50 MG TAB PO ONE (21:56)
[2018-11-25] MEDS ORDERED: ZOLPIDEM TARTRATE 5 MG TABLET PO ONE (22:15)
[2018-11-26] MEDS: ALBUTEROL 2.5 MG/3 ML NEB SOL NEB SCH ×4 (01:20→20:00)
[2018-11-26] MEDS: IPRATROPIUM BROM 0.5MG/2.5ML NEB SCH ×4 (01:20→20:00)
[2018-11-26 05:24] LABS: Absolute Lymphocytes (CBC) 0.7 K/uL (0.7-4.9); Basophils % 1.3 % (0-1.3); Eosinophils % 3.1 % (0-4.4); Hematocrit 26.2 % (39.6-49.0); Lymphocytes % 7.9 % (15.3-44.8); MPV 9.9 fL (7.6-11.3); Monocytes % 9.4 % (3.3-12.3); RBC Red Blood Cell Count 2.85 M/uL (4.33-5.43)
[2018-11-26 05:39] LABS: Albumin 2.3 g/dL (3.4-5.0); Phosphorus 2.6 mg/dL (2.5-4.9); Potassium 3.8 mmol/L (3.5-5.1); Uric Acid 5.3 mg/dL (3.5-7.2)
[2018-11-26] MEDS: LEVOTHYROXINE SOD 0.1 MG TAB PO SCH (05:44)
[2018-11-26 06:28] LABS: Blood Morphology Comment NOT SEEN (NOT SEEN); Platelet Estimate ADEQ
[2018-11-26 07:13] VITALS: BMI 27.3
[2018-11-26] MEDS: CEFTRIAXONE/SWI 1gm 1 GM/10 ML SYR IVP SCH (08:44)
[2018-11-26] MEDS: VENLAFAXINE HCL 75 MG TABLET PO SCH ×2 (08:44→20:40)
[2018-11-26] MEDS: CARVEDILOL 6.25 MG TAB PO SCH ×2 (08:44→21:00)
[2018-11-26] MEDS: NA CHLORIDE 0.9% 1,000 ML IV SCH (08:45)
[2018-11-26 09:36] LABS: Urine Protein/Creatinine Ratio 0.55 ratio (<0.15)
[2018-11-26 12:27] LABS: Rheumatoid Factor NEG (NEG)
[2018-11-26] MEDS ORDERED: AMLODIPINE 5 MG TAB PO ONE (15:03)
[2018-11-26] MEDS ORDERED: HYDRALAZINE HCL 20 MG/ML VIAL IV PRN (15:06)
--- NOTE | 2018-11-26 15:24 | P.PN ---
Subjective Date of Service: 11/26/18 Chief Complaint: generalzied weaknes and fatigue Subjective: No C/O voiced, Tolerating diet, Improving, Doing well Review of Systems 10-point ROS is otherwise unremarkable Physical Examination - Vital Signs Temperature: 98.6 F Blood Pressure: 140/59 Pulse: 68 Respirations: 22 Pulse Ox (%): 97 - Physical Exam General: Alert, In no apparent distress HEENT: Atraumatic, PERRLA, EOMI Neck: Supple, JVD not distended Respiratory: Clear to auscultation bilaterally, Normal air movement Cardiovascular: Regular rate/rhythm, Normal S1 S2 Gastrointestinal: Normal bowel sounds, No tenderness Musculoskeletal: No tenderness Integumentary: No rashes Neurological: Normal speech, Normal tone, Normal affect Lymphatics: No axilla or inguinal lymphadenopathy - Studies Microbiology Data (last 24 hrs): 11/24/18 15:30 Clean Catch Urine [place] Count - Final >100,000 CFU/ML. 11/24/18 15:30 Clean Catch Urine - Final Escherichia Coli Medications List Reviewed: Yes Assessment And Plan - Current Problems (Diagnosis) (1) DAVID (acute kidney injury) Current Visit: Yes Status: Acute Plan: Acute kidney injury -most likely secondary to poor profusion secondary to dehydration versus medication side effect -IV fluids at this time per nephrology is recommendation -nephrology consulted appreciated recommendations at this time -blood pressure goal to be around 160/90 (2) UTI (urinary tract infection) Current Visit: Yes Status: Acute Plan: Acute UTI -urine culture + for ECOLI sensitive to PO augmentin. Qualifiers: Urinary tract infection type: acute cystitis Hematuria presence: without hematuria Qualified Code(s): N30.00 - Acute cystitis without hematuria (3) Afib Current Visit: No Status: Chronic Qualifiers: Atrial fibrillation type: chronic Qualified Code(s): I48.2 - Chronic atrial fibrillation (4) CKD (chronic kidney disease) Current Visit: No Status: Chronic Qualifiers: (5) Congestive heart failure Current Visit: No Status: Chronic Qualifiers: Heart failure type: combined systolic and diastolic (6) Hypertension Current Visit: No Status: Chronic Qualifiers: Hypertension type: essential hypertension (7) Stroke Onset Date: 11/08/16 Current Visit: No Status: Chronic Qualifiers: CVA mechanism: unspecified Qualified Code(s): I63.9 - Cerebral infarction, unspecified - Plan Pending clinical improvement at this time. Will transfer patient to the regular floor at this time. Will monitor for next 24-48 hr for improvement in his kidney function and discharged home after that. Discharge Plan: Home Plan to discharge in: Greater than 2 days - Code Status/Comfort Care Code Status Assessed: Yes Critical Care: No
[2018-11-26] MEDS: RIVAROXABAN 15 MG TABLET PO SCH (17:04)
[2018-11-26] MEDS: ROSUVASTATIN 10 MG TAB PO SCH (20:40)
[2018-11-26] MEDS: AMOX/K CLAV 500 MG TAB PO SCH (20:40)
[2018-11-26] MEDS: GABAPENTIN 300 MG CAP PO SCH (20:40)
[2018-11-26] MEDS: ZOLPIDEM TARTRATE 5 MG TABLET PO PRN (20:40)
[2018-11-26] MEDS: QUETIAPINE 25 MG TAB PO SCH (20:43)
[2018-11-27] MEDS: ALBUTEROL 2.5 MG/3 ML NEB SOL NEB SCH ×4 (01:42→19:25)
[2018-11-27] MEDS: IPRATROPIUM BROM 0.5MG/2.5ML NEB SCH ×4 (01:42→19:25)
--- NOTE | 2018-11-27 01:54 | PN ---
Date of Progress Note: 11/26/2018 Chief Complaint: Elevated BUN and creatinine, history of hypertensive heart and kidney disease, acut e kidney injury with prerenal azotemia, renal hypoperfusion complicated by acute tubular necrosis. R enal function remains nonoliguric. The patient was found to have urinary tract infection, urosepsis. The patient developed acute kidney injury associated with effect of diuretic. The patient was taki ng Aldactone along with angiotensin receptor arjun. He developed urinary retention and urosepsis. The patient had Boss catheter placed for urinary retention. Review of Systems: Denies fever, chills. Denies nausea, vomiting. Physical Examination: Lungs: Clear to auscultation bilaterally. Heart: S1-S2. Abdomen: Soft, benign. Extremities: Slight edema. Laboratory Data: Hemoglobin is 10.3, WBC 11.6, platelet count is 136,000. Sodium 143, potassium 3.8 , chloride 115, CO2 20, BUN 35, creatinine 1.83, glucose 71. Impression And Plan: 1.Acute on chronic kidney injury. The patient has chronic kidney disease stage 3. He developed uri nary retention. Continue Boss catheter. The patient was taken off diuretics to prevent renal hypop erfusion. Avoid angiotensin receptor arjun. At this point, the patient is responding to hydration . Electrolytes are within acceptable ranges. Monitor renal panel closely. Continue treatment for urinary tract infection. Continue Boss catheter and monitor urine output. HELLEN/MODL Voice ID: [id number] Report ID: [id number]
[2018-11-27 04:27] LABS: Absolute Lymphocytes (CBC) 0.9 K/uL (0.7-4.9); Eosinophils % 3.3 % (0-4.4); MPV 9.8 fL (7.6-11.3); Monocytes % 11.6 % (3.3-12.3)
[2018-11-27 04:44] LABS: Albumin 2.4 g/dL (3.4-5.0); Phosphorus 3.1 mg/dL (2.5-4.9); Potassium 3.9 mmol/L (3.5-5.1)
[2018-11-27] MEDS ORDERED: POTASSIUM CL SA 10 MEQ TAB PO ONE (04:53)
[2018-11-27] MEDS: LEVOTHYROXINE SOD 0.1 MG TAB PO SCH (05:36)
[2018-11-27] MEDS: VENLAFAXINE HCL 75 MG TABLET PO SCH ×2 (09:08→21:31)
[2018-11-27] MEDS: CARVEDILOL 6.25 MG TAB PO SCH ×2 (09:08→21:31)
[2018-11-27] MEDS: AMOX/K CLAV 500 MG TAB PO SCH ×2 (09:08→21:30)
--- NOTE | 2018-11-27 11:02 | P.PN ---
Subjective Date of Service: 11/27/18 Chief Complaint: generalzied weaknes and fatigue Patient seen and examined at bedside with RN. Chart reviewed. Case discussed with nursing staff at bedside. This morning patient is doing better than before. Has not been able to get up and out of bed yet. Denies having any fever chills nausea vomiting at this time. Review of Systems 10-point ROS is otherwise unremarkable Physical Examination - Vital Signs Temperature: 97.0 F Blood Pressure: 152/61 Pulse: 62 Respirations: 18 Pulse Ox (%): 97 - Physical Exam General: Alert, In no apparent distress, Oriented x3 Respiratory: Clear to auscultation bilaterally, Normal air movement Cardiovascular: Regular rate/rhythm, Normal S1 S2 Gastrointestinal: Normal bowel sounds, No tenderness Musculoskeletal: No tenderness Integumentary: No rashes Neurological: Normal speech, Normal tone, Normal affect Lymphatics: No axilla or inguinal lymphadenopathy Urinary: Boss catheter - Studies Microbiology Data (last 24 hrs): 11/24/18 14:25 Blood - Blood Aerobic Blood Culture - Final Escherichia Coli 11/24/18 14:25 Blood - Blood Gram Stain - Final 11/24/18 14:25 Blood - Blood Anaerobic Blood Culture - Final Escherichia Coli 11/24/18 14:25 Blood - Blood Gram Stain - Final 11/24/18 15:30 Clean Catch Urine [place] Count - Final >100,000 CFU/ML. 11/24/18 15:30 Clean Catch Urine - Final Escherichia Coli Medications List Reviewed: Yes Assessment And Plan - Current Problems (Diagnosis) (1) Toxic encephalopathy Current Visit: Yes Status: Acute Plan: Toxic encephalopathy most likely secondary to UTI -currently alert and oriented x3 -head CT negative for any acute abnormality (2) UTI (urinary tract infection) Current Visit: Yes Status: Acute Plan: Patient with initial toxic encephalopathy with urine culture positive for UTI -urine culture + for ECOLI sensitive to PO augmentin. Currently on Augmentin Qualifiers: Urinary tract infection type: acute cystitis Hematuria presence: without hematuria Qualified Code(s): N30.00 - Acute cystitis without hematuria (3) DAVID (acute kidney injury) Current Visit: Yes Status: Acute Plan: Acute kidney injury most likely secondary to dehydration versus medication side effect versus infection. Now or is -IV fluids discontinued at this time. BUN and creatinine back to baseline -nephrology consulted appreciated recommendations at this time (4) Afib Current Visit: No Status: Chronic Plan: On beta-arjun and anti coagulation at this time Qualifiers: Atrial fibrillation type: chronic Qualified Code(s): I48.2 - Chronic atrial fibrillation (5) CKD (chronic kidney disease) Current Visit: No Status: Chronic Plan: Acute kidney injury on chronic kidney disease. Acute phase now hr Qualifiers: Chronic kidney disease stage: stage 3 (moderate) (6) Congestive heart failure Current Visit: No Status: Chronic Plan: History of Congestive heart failure -Armen monitor closely and restart home medication at this time Qualifiers: Heart failure type: combined systolic and diastolic Heart failure chronicity: chronic Qualified Code(s): I50.42 - Chronic combined systolic ( congestive) and diastolic (congestive) heart failure (7) Hypertension Current Visit: No Status: Chronic Plan: Restart home medication at this Qualifiers: Hypertension type: essential hypertension (8) Stroke Onset Date: 11/08/16 Current Visit: No Status: Chronic Qualifiers: CVA mechanism: unspecified Qualified Code(s): I63.9 - Cerebral infarction, unspecified - Plan Pending clinical improvement at this time. Have patient worked with physical therapy and occupational therapy at this time. Erick Boss as well at this time. Discharge Plan: Home Plan to discharge in: Greater than 2 days - Code Status/Comfort Care Code Status Assessed: Yes Critical Care: No
--- NOTE | 2018-11-27 12:19 | PN ---
Admitted to Dr. Dowd yesterday on 11/24/2018 with dementia, UTI, atrial fibrillation that is chronic, elevated troponin. Echocardiogram that was done today show ed normal ejection fraction. No wall motion abnormalities. No effusion. No further plans from a ca rdiac standpoint to do a further workup. We will sign off the case. He can go home whenever it is o shantel with Dr. Dowd. CHASITY/ANGELICAL Voice ID: [id number] Report ID: [id number]
--- NOTE | 2018-11-27 16:05 | ECHO ---
HEIGHT: 5 ft 9 in WEIGHT: 186 lb 8 oz DATE OF STUDY: 11/27/[address]: Lucy Desai MD 2-DIMENSIONAL: YES M.MODE: YES DOPPLER: COLOR FLOW: TDS: PORTABLE: DEFINITY: BUBBLE STUDY: DIAGNOSIS: ELEVATED TROPONIN CARDIAC HISTORY: CATHERIZATION: NO SURGERY: NO PROSTHETIC VALVE: NO PACEMAKER: NO MEASUREMENTS (cm) DIASTOLIC (NORMALS) SYSTOLIC (NORMALS) IVSd 1.0 (0.6-1.2) LA Diam 3.5 (1.9-4.0) LVEF 70% LVIDd 4.6 (3.5-5.7) LVIDs 2.8 (2.0-3.5) %FS 39% LVPWd 1.1 (0.6-1.2) Ao Diam 2.9 (2.0-3.7) 2 DIMENSIONAL ASSESSMENT: RIGHT ATRIUM: NORMAL LEFT ATRIUM: NORMAL RIGHT VENTRICLE: NORMAL LEFT VENTRICLE: NORMAL TRICUSPID VALVE: NORMAL MITRAL VALVE: NORMAL PULMONIC VALVE: NORMAL AORTIC VALVE: NORMAL PERICARDIAL EFFUSION: NONE AORTIC ROOT: NORMAL LEFT VENTRICULAR WALL MOTION: NORMAL DOPPLER/COLOR FLOW: NOT REQUESTED. COMMENTS: NORMAL TWO DIMENSIONAL ECHOCARDIOGRAM. NO WALL MOTION ABNORMALITY. NO EFFUSION. TECHNOLOGIST: KIM LOPEZ
[2018-11-27] MEDS: RIVAROXABAN 15 MG TABLET PO SCH (18:18)
--- NOTE | 2018-11-27 19:54 | P.PN ---
Subjective Date of Service: 11/27/18 Chief Complaint: generalzied weaknes and fatigue Subjective: Improving Pt with DAVID, cr normalized aon IVF and folery placement , US no hydro Today no overnight events BP acceptable for age remove pelletier and TOV cleared for discharge from nephrology point of view Physical Examination - Vital Signs Temperature: 97.0 F Blood Pressure: 152/61 Pulse: 62 Respirations: 18 Pulse Ox (%): 97 - Physical Exam General: In no apparent distress, Oriented x3 HEENT: Atraumatic Neck: Supple, Without JVD or thyroid abnormality Respiratory: Clear to auscultation bilaterally, Normal air movement Cardiovascular: Normal pulses, Regular rate/rhythm, Normal S1 S2, No gallops, No rubs, No murmurs (trace edema ), Edema Gastrointestinal: Normal bowel sounds, Soft and benign, No ascites Musculoskeletal: No swelling Integumentary: No rashes - Studies Microbiology Data (last 24 hrs): 11/24/18 14:25 Blood - Blood Aerobic Blood Culture - Final Escherichia Coli 11/24/18 14:25 Blood - Blood Gram Stain - Final 11/24/18 14:25 Blood - Blood Anaerobic Blood Culture - Final Escherichia Coli 11/24/18 14:25 Blood - Blood Gram Stain - Final Medications List Reviewed: Yes Assessment And Plan - Current Problems (Diagnosis) (1) DAVID (acute kidney injury) Current Visit: Yes Status: Acute - Plan DAVID due to prerenal azotemia resolved US no hydro HTn contreooled Afib rate controlled UTI cont Abx
[2018-11-27] MEDS: ZOLPIDEM TARTRATE 5 MG TABLET PO PRN (21:30)
[2018-11-27] MEDS: ROSUVASTATIN 10 MG TAB PO SCH (21:30)
[2018-11-27] MEDS: GABAPENTIN 300 MG CAP PO SCH (21:31)
[2018-11-27] MEDS: QUETIAPINE 25 MG TAB PO SCH (21:31)
[2018-11-28] MEDS: IPRATROPIUM BROM 0.5MG/2.5ML NEB SCH ×2 (01:15→07:34)
[2018-11-28] MEDS: ALBUTEROL 2.5 MG/3 ML NEB SOL NEB SCH ×2 (01:15→07:34)
[2018-11-28 03:57] LABS: HBsAG Nonreactive (Nonreactive)
[2018-11-28] MEDS: LEVOTHYROXINE SOD 0.1 MG TAB PO SCH (06:05)
[2018-11-28 06:24] LABS: Albumin 2.5 g/dL (3.4-5.0); Phosphorus 3.6 mg/dL (2.5-4.9); Potassium 4.2 mmol/L (3.5-5.1)
[2018-11-28 07:05] LABS: Hepatitis C Virus RNA (PCR)log <1.18 log IU/mL
[2018-11-28 08:05] VITALS: BP 170/69; TEMP 97.6
[2018-11-28] MEDS: VENLAFAXINE HCL 75 MG TABLET PO SCH (08:19)
[2018-11-28] MEDS: AMOX/K CLAV 500 MG TAB PO SCH (08:20)
[2018-11-28] MEDS: CARVEDILOL 6.25 MG TAB PO SCH (08:20)
[2018-11-28 08:24] VITALS: O2SAT 99
--- NOTE | 2018-11-28 11:01 | P.DS ---
Admission Date: 11/24/18 Discharge Date: 11/28/18 Disposition: ROUTINE DISCHARGE Discharge Condition: GOOD Reason for Admission: generalzied weaknes and fatigue Consultations: Nephrology - Problems (1) Toxic encephalopathy Current Visit: Yes Status: Acute (2) UTI (urinary tract infection) Current Visit: Yes Status: Acute Qualifiers: Urinary tract infection type: acute cystitis Hematuria presence: without hematuria Qualified Code(s): N30.00 - Acute cystitis without hematuria (3) DAIVD (acute kidney injury) Current Visit: Yes Status: Acute (4) Afib Current Visit: No Status: Chronic Qualifiers: Atrial fibrillation type: chronic Qualified Code(s): I48.2 - Chronic atrial fibrillation (5) CKD (chronic kidney disease) Current Visit: No Status: Chronic Qualifiers: Chronic kidney disease stage: stage 3 (moderate) (6) Congestive heart failure Current Visit: No Status: Chronic Qualifiers: Heart failure type: combined systolic and diastolic Heart failure chronicity: chronic Qualified Code(s): I50.42 - Chronic combined systolic ( congestive) and diastolic (congestive) heart failure (7) Hypertension Current Visit: No Status: Chronic Qualifiers: Hypertension type: essential hypertension (8) Stroke Onset Date: 11/08/16 Current Visit: No Status: Chronic Qualifiers: CVA mechanism: unspecified Qualified Code(s): I63.9 - Cerebral infarction, unspecified Brief History of Present Illness: 83 y/o man with pmhx of HTN,Afib ,hypothyordism,stroke with residual left sided weakness presented to ER with generzliaed weaknes and fatigue and according to the family he was unable to stand up today.pt was having cough for the last few days with congestion and no fever .accoridng to pt she noticed his urine is dark in last few days .o ,in ER pt was found with DAVID and UA +ve for UTI and his troponin were elevated but pt denied any CP ,SOB ,palpitation .also pt denied recent travel ,fever,n/v or diarrhea.,headache or any other complains . Hospital Course: Overall during the hospital course patient remained stable Patient was initially admitted to the hospital for generalized weakness and was found to have UTI along with a KI and acute encephalopathy secondary to UTI. For patient's urinary tract infection patient was started on IV antibiotics here in the hospital. Urine culture were collected. Urine culture was positive for E. coli at which time patient was switched over to Augmentin that Ecoli was sensitive to. Patient had marked improvement in his symptoms while here in the hospital. For patient's acute kidney injury was found the patient has acute kidney injury could be secondary to UTI versus medication side affects. Patient's losartan and spironolactone were on hold. IV fluids were given. IV fluids were discontinued when patient had improvement in his acute kidney injury. Patient' s BUN and creatinine improved after medication discontinuation and treatment of UTI. At which time patient was cleared by nephrology for discharge home. Patient was started on hydralazine 25 mg b.i.d. and was asked to hold losartan and continue taking spironolactone. Patient's Xarelto that he takes for atrial fibrillation was also adjusted to renal dosing at 15 mg daily. For patient's generalized weakness patient was working with physical therapy here in the hospital and home health was arranged on discharge. For patient's acute encephalopathy which resolved once UTI was treated. Patient was alert and oriented x3 on the day of discharge. Head CT initially was negative for any acute abnormality as well. Patient was then discharged home under stable condition and was asked to follow up with primary care provider along with nephrology in about 1-2 weeks post discharge. Was given prescription for Augmentin to be taken for total of 12 more days along with new prescription for hydralazine. Was asked to hold losartan at home. Was also given a prescription for Xarelto Vital Signs/Physical Exam: Temp Pulse Resp BP Pulse Ox 97.6 F 61 19 170/69 H 99 11/28/18 08:00 11/28/18 08:20 11/28/18 08:00 11/28/18 08:20 11/28/18 08:00 General: Alert, In no apparent distress HEENT: Atraumatic, PERRLA, EOMI Neck: Supple, JVD not distended Respiratory: Clear to auscultation bilaterally, Normal air movement Cardiovascular: Regular rate/rhythm, Normal S1 S2 Gastrointestinal: Normal bowel sounds, No tenderness Musculoskeletal: No tenderness Integumentary: No rashes Neurological: Normal speech, Normal tone, Normal affect Lymphatics: No axilla or inguinal lymphadenopathy Laboratory Data at Discharge: WBC 5.5 K/uL (4.3-10.9) D 11/27/18 04:01 Hgb 10.9 g/dL (13.6-17.9) L 11/27/18 04:01 Hct 32.0 % (39.6-49.0) L D 11/27/18 04:01 Plt Count 125 K/uL (152-406) L 11/27/18 04:01 PT 20.7 SECONDS (9.5-12.5) H 11/24/18 14:25 INR 1.79 11/24/18 14:25 Sodium 144 mmol/L (136-145) 11/28/18 05:32 Potassium 4.2 mmol/L (3.5-5.1) 11/28/18 05:32 BUN 19 mg/dL (7-18) H 11/28/18 05:32 Creatinine 1.26 mg/dL (0.55-1.3) 11/28/18 05:32 Glucose 88 mg/dL (74-106) 11/28/18 05:32 Uric Acid 5.3 mg/dL (3.5-7.2) 11/26/18 05:07 Phosphorus 3.6 mg/dL (2.5-4.9) 11/28/18 05:32 Magnesium 2.0 mg/dL (1.8-2.4) 11/26/18 05:07 Total Bilirubin 0.7 mg/dL (0.2-1.0) 11/25/18 05:03 AST 33 U/L (15-37) 11/25/18 05:03 ALT 25 U/L (12-78) 11/25/18 05:03 Alkaline Phosphatase 77 U/L (45-117) 11/25/18 05:03 Troponin I 0.23 ng/mL (0.0-0.045) H 11/25/18 13:53 Lipase 89 U/L (73-393) 11/24/18 14:25 Home Medications: Atorvastatin Calcium [Lipitor] 40 mg PO BEDTIME #30 tab 10/21/16 Levothyroxine [Synthroid*] 0.1 mg PO [id number] tab 10/21/16 Quetiapine [Seroquel*] 25 mg PO BEDTIME #30 tab 10/21/16 Venlafaxine HCl *Xr* [Effexor XR] 150 mg PO BEDTIME cap 10/21/16 Spironolactone [Aldactone*] 25 mg PO DAILY 11/06/16 Albuterol Inhaler [Ventolin Inhaler*] 2 puff IH Q6H PRN #1 hfa.aer.ad 02/09/17 Acetaminophen [Tylenol] 650 mg PO Q4HP PRN 06/08/17 Carvedilol 12.5 mg PO BIDWM 06/08/17 Hydrocodone 5/APAP 325 [[place] 5/325*] 1 tab PO Q6H PRN 06/08/17 Tramadol HCl [Ultram] 50 mg PO Q6HP PRN 06/08/17 Gabapentin 600 mg PO BID #60 tablet 06/20/17 Zolpidem Tartrate 5 mg PO BEDTIME 11/25/18 Amox/Clavulanate [Augmentin 500-125 mg Tab*] 500 mg PO BID #24 tab 11/28/18 Doxazosin [Cardura] 2 mg PO DAILY #30 tab 11/28/18 Rivaroxaban [Xarelto*] 15 mg PO DAILY AT SUPPER #30 tablet 11/28/18 New Medications: Amox/Clavulanate [Augmentin 500-125 mg Tab*] 500 mg PO BID #24 tab Doxazosin [Cardura] 2 mg PO DAILY #30 tab Rivaroxaban [Xarelto*] 15 mg PO DAILY AT SUPPER #30 tablet Patient Discharge Instructions: Please f.u with PCP And Nephrology In 1 to 2 weeks post discharge. New medication. Augmentin Daily for 12 more days. Hold Losartan for next 4 week for now. Change xarelto to 15mg Daily instead of 20mg daily. Continue all other medication as precribed. Diet: Regular Activity: Ad polina Followup: Jacob Llanos MD [ACTIVE - CAN ADMIT] - 1-2 Weeks (kidney- Call to schedule an appointment ) Pete Almeida MD [Primary Care Provider] - 1-2 Weeks (Primary care physician- Call to schedule an appointment )
--- NOTE | 2018-11-28 14:27 | PN ---
Date of Progress Note: 11/28/2018 Subjective: The patient was admitted with acute kidney injury secondary to the ARB, aldactone, and c ardiorenal. The patient recover very well. Physical Examination: Vital Signs: When I saw the patient blood pressure 170/69, pulse of 61. The patient had good urine output. Chest: Clear to auscultation. Heart: S1 and S2, regular. Abdomen: Soft and nontender. Extremities: No edema. Laboratory Data: H and H 10.9/32. Sodium 144, potassium 4.2, bicarb 24, BUN 19, creatinine 1.2, halima cium 8.1, phosphorus 3.6. Current Medications: The patient on include Augmentin, albuterol, Xarelto, carvedilol 6.25, Crestor, gabapentin, Effexor, Ambien, levothyroxine, KCl. Assessment And Plan: 1.Acute kidney injury secondary to cardiorenal, poor perfusion, acute tubular necrosis, recovered, r esolved, back to baseline, looked to me normal volume. I am going to continue current medication. D C IV fluid. We will monitor the patient. 2.Hypertension, not controlled. We will add hydralazine. Okay to resume spironolactone. We will k eep holding ARB. 3.Urinary tract infection secondary to Escherichia coli with bacteremia. Continue current antibioti c. We will follow up with the primary. The patient cleared from the renal standpoint for discharge planning. Follow up in the office in 2-3 weeks. KARRIE Voice ID: [id number] Report ID: [id number]
[2018-11-28 17:24] LABS: HIV AG/AB 4TH GEN Non-reactive (Non-reactive)
[2018-11-28 23:48] LABS: Albumin, (SPE) 2.3 g/dL (3.8-4.8); Alpha-1-Globulins 0.4 g/dL (0.2-0.3); Alpha-2-Globulins 0.7 g/dL (0.5-0.9); Gamma Globulins 1.1 g/dL (0.8-1.7); INTERPRETATION REPORT
[2018-11-30 10:05] LABS: P-ANCA Anti-Myeloperoxidase Ab <1.0 AI (<1.0)
== END 2018-11-28 11:52 | disposition home or self-care (01) | DRG 682 ==
LOC: ER 13:21 → ERHOLD 17:53 → 3RD-ICU 22:06 → 4TH 11-26 16:00
PROVIDERS: ADMIT Internal Medicine; ATTEND Internal Medicine
DX: N17.0 Acute kidney failure with tubular necrosis (principal); G92 Toxic encephalopathy; N30.00 Acute cystitis without hematuria; I13.0 Hypertensive heart and chronic kidney disease with heart failure and stage 1 through stage 4 chronic kidney disease, or unspecified chronic kidney disease; I50.42 Chronic combined systolic (congestive) and diastolic (congestive) heart failure; N13.9 Obstructive and reflux uropathy, unspecified; B96.20 Unspecified Escherichia coli [E. coli] as the cause of diseases classified elsewhere; N18.3 Chronic kidney disease, stage 3 (moderate); I48.0 Paroxysmal atrial fibrillation; I25.10 Atherosclerotic heart disease of native coronary artery without angina pectoris; E03.9 Hypothyroidism, unspecified; E78.5 Hyperlipidemia, unspecified; Z87.891 Personal history of nicotine dependence
CPT/HCPCS: 36415; 71045; 76770; 80048; 80053; 80069; 80076; 81003; 81015; 82550; 82553; 82570; 82805; 82962; 83520; 83605; 83690; 83735; 83970; 84145; 84156; 84165; 84484; 84550; 85025; 85610; 86021; 86038; 86160; 86225; 86317; 86430; 86704; 86706; 87040; 87077; 87086; 87088; 87186; 87205; 87340; 87389; 87493; 87522; 93005; 93307; 94640; 94760; 94762; 96361; 96365; 97116; 97161; 99285; J0696; J7030

== ENCOUNTER 2022-11-16 11:58 | Emergency (ER) | payer OTHER, MEDICARE ==
--- OUTSIDE RECORDS SUMMARY | 2022-11-16 12:06 | XMS REPORT | Continuity of Care Document ---
:[address] [facility] t Address [address] [facility]. [address] [place] [address] Care Team Providers Name Role Phone Beverly TAMAYO MD, Bertin Holman Primary Care Physician [phone] Attending Clinician Unavailable NONI WOODS Attending Clinician Unavailable MD NONI WOODS Attending Clinician Unavailable DO HORACE DUARTE Attending Clinician Unavailable ULISES SIMEON Attending Clinician Unavailable [id number] Admitting Clinician Unavailable HORACE DUARTE Admitting Clinician Unavailable DO HORACE DUARTE Admitting Clinician Unavailable FABRIZIO WADE Admitting Clinician Unavailable Payers Payer Name Policy Type Policy Number Effective Date Expiration Date S manasa MEDICARE PART A AND [id number] 2001 B 00:00:00 MEDICARE A B [id number] 2001 00:00:00 [facility] [id number] 2004 HEALTHCARE 00:00:00 Problems Condition Condition Condition Status Onset Resolution Last Treating Co mments Source Name Details Category Date Date Treatment Clinician Date Pneumonia Pneumonia Disease Active 2020-06 [facility] Hosp[facility] 00 l Hypokalemi Hypokalemi Disease Active [facility] Iron Iron Disease Active 2019-[address] [facility] deficiency deficiency 2-16 Madhuri kes anemia, anemia, 00:00: Medical unspecifie unspecifie 00 Ce nter d d Atrial Atrial Disease Recurre [facility] fibrillati fibrillati nce 1-13 Madhuri kes on, on, 00:00: Medical unspecifie unspecifie 00 Ce nter d type d type Atrial Atrial Disease Recurre [facility] fibrillati fibrillati nce 1-10 Madhuri kes on on 00:00: Medical 00 Center Allergies, Adverse Reactions, Alerts Allergy Allergy Status Severity Reaction(s) Onset Inactive Treating Comm ents Source Name Type Date Date Clinician Keturah Brownensi Active Rash 2020-06 [facility] i ine ty to 2-13 st adverse 00:00: Hospita reaction 00 l s to drug CIPROFLO Allergy Active [facility] XACIN 2-21 [facility] Ciproflo Propensi Active [facility] xacin ty to 2-21 [facility] adverse 00:00: Medical reaction 00 Center s HYDRALAZ Allergy Active Low Rash [facility] INE 1-12 ANALOGUE 00:00: S 00 Hydralaz Drug Active Rash Old [facility] Allergy 1-12 record, [facility] Analogue 00:00: also from Medic al s 00 dr's note Center from old record. Social History Social Habit Start Date Stop Date Quantity Comments Source Gender [facility] Sexual orientation [facility] History of tobacco Current smoker [facility] Alcohol intake 2021-06-02 2021-06-02 [facility] 00:[facility]:00 non-drinker Hospital (finding) History of Social 2021-06-02 2021-06-[address] function 00:00:00 00:00:00 Hospital Tobacco use and 2021-05-31 2021-05-31 Smokeless [facility] 00:00:00 00:00:00 tobacco non-user Hospital Sex Assigned At [birth year] [facility] Smoking Status Start Date Stop Date Source Ex-smoker 2021-05-31 00:00:00 2021-05-31 [facility] Medications Ordered Filled Start Stop Current Ordering Indication Dosage Frequency Signature Comments Components Source Medication Medication Date Date Medication? Clinician (SIG) Name Name latanoprost 2020-06 Yes 1[drp] QD Administer [facility] (XALATAN) 2-[address] 0.005 % 15:57: the right Hospi ta ophthalmic 04 eye l solution nightly. amIODarone 2020-06 No 200mg QD Take 1 [facility] (PACERONE) 2-24 12-[address] 200 MG 00:00: 05:59 (200 mg Hospita tablet 00 :00 total) by l mouth daily. metoprolol 2020-06 No 25mg Q.5D Take 1 Meth frank tartrate 2 12-24 tablet (25 st (LOPRESSOR) 00:00: 05:59 mg total) Hospita 25 mg 00 :00 by mouth 2 l tablet (two) times a day. rosuvastati 2020-06 Yes 5mg QD Take 5 mg M ethodi n (CRESTOR) 0-[address] 5 mg tablet 00:00: daily. [facility] 00 l levothyroxi Yes 75ug Take [address] ne 2-24 mcg by [facility] (SYNTHROID, 18:24: mouth Medic al LEVOTHROID) 33 Every Center 75 MCG morning on tablet an empty stomach . aspirin 81 Yes 81mg QD Take [address] MG chewable 2-24 by mouth Luke s tablet 18:24: daily . Medical [address] [place] [address] allopurinoL Yes 300mg QD Take [address] (ZYLOPRIM) 2-24 mg by [facility] 300 MG 18:24: mouth Medical tablet 33 daily. [facility] amitriptyli Yes 50mg QD Take [address] ne (ELAVIL) 2-24 by mouth Luke s 50 MG 18:24: daily. Medical tablet 33 [facility] metFORMIN Yes 500mg QD Take [address] (GLUCOPHAGE 2-24 mg by [facility] ) 500 MG 18:24: mouth Medical tablet 33 nightly. [facility] nitroglycer Yes .4mg Place 0.[address] in 2-24 mg under [facility] (NITROSTAT) 18:24: the tongue Medical 0.4 MG SL 33 every 5 Center tablet (five) minutes as needed for Chest pain Put 1 pill under tongue every 5min as needed for chest pain.No more than 3 doses in 15min.Call 911 if pain unrelieved 5min after 1st dose . omeprazole Yes 20mg QD Take [address] (PriLOSEC) 2-24 by mouth [facility] 20 MG 18:24: daily. Medical capsule 33 [facility] clopidogreL Yes 75mg QD Take [address] (PLAVIX) 75 2-24 by mouth Luke s mg tablet 18:24: daily. Medica l 33 [facility] travoprost Yes 1[drp] QD [address] (TRAVATAN 2-24 nightly. [facility] Z) 0.004 % 18:24: Medical Drop 33 [facility] ophthalmic drops traZODone Yes 100mg QD Take [address] (DESYREL) 2-24 mg by [facility] 100 MG 18:24: mouth Medical tablet 33 nightly. [facility] rivaroxaban 2016-06 Yes 15mg QD Take 15 mg [facility] (XARELTO) 2-[address] 15 mg 00:00: daily. Hospita tablet 00 l levothyroxi Yes 100ug QD Take 100 M ethodi ne 5-[address] (SYNTHROID) 00:00: mouth Hospi ta 100 mcg 00 daily. l tablet Take every morning atorvastati 2015-06 Yes 40mg QD 40 mg [facility] n (LIPITOR) 2-23 nightly . Suki es 40 MG 00:00: Medical tablet 00 Center Immunizations Ordered Immunization Filled Immunization Date Status Commen ts Source Name Name Td 7+ years, (TDVAX) 2020-10-[address] [facility] 2 Lf tetanus toxoid 00:00:00 Medic al Center preservative free [facility] COVID-19 MRNA 2020-08-12 Completed [facility] 2020-07-17 Completed [facility] VACCINATION 00:00:00 Hospital Pneumococcal 2014-07-04 Completed [facility] Polysaccharide 00:[facility]:00 Hospital Vital Signs Vital Name Observation Time Observation Value Comments Source HEIGHT 2020-10-30 15:19:00 175.3 cm WEIGHT 2020-10-30 15:19:00 104.327 kg HEIGHT 2020-08-01 23:50:00 175.3 cm WEIGHT 2020-08-01 23:50:00 106.369 kg WEIGHT 2020-08-01 17:34:00 142.883 kg HEIGHT 2020-08-01 23:50:00 175.3 cm WEIGHT 2020-08-01 23:50:00 106.369 kg WEIGHT 2020-08-01 17:34:00 142.883 kg Procedures This patient has no known procedures. Plan of Care Planned Activity Planned Date Details Comments Source Future Scheduled 2030-10-30 DTAP/TDAP/TD VACCINES [facility] Test 00:00:00 (2 - Td or Tdap) [code Medic al Center = DTAP/TDAP/TD VACCINES (2 - Td or Tdap)] Future Scheduled 2023-02-[address] [facility] Test 00:00:00 (Season Ended) [code = Medic al Center INFLUENZA VACCINE (Season Ended)] Future Scheduled 2022-09-13 SHINGLES VACCINES (1 [facility] Hospital Test 01:29:45 of 2) [code = SHINGLES VACCINES (1 of 2)] Future Scheduled 2022-09-13 65+ PNEUMOCOCCAL [facility] Test 01:29:45 VACCINE (2 - PCV) [code = 65+ PNEUMOCOCCAL VACCINE (2 - PCV)] Future Scheduled 2022-09-13 COVID-19 VACCINE (3 - [facility] Hospital Test 01:29:45 Booster for Moderna series) [code = COVID-19 VACCINE (3 - Booster for Moderna series)] Future Scheduled 2022-09-13 INFLUENZA VACCINE [facility] Hospital Test 01:29:45 [code = INFLUENZA VACCINE] Future Scheduled 2022-06-[address] [facility] Test 00:00:00 (12+) [code = Medical Center DEPRESSION SCREENING (12+)] Future Scheduled 2022-06-12 FALLS RISK SCREENING [facility] Test 00:00:00 [code = FALLS RISK Medical C enter SCREENING] Future Scheduled 2021-10-[address] [facility] Test 00:00:00 Counseling and Medical Cente r Screening (12+) [code = Tobacco Cessation Counseling and Screening (12+)] Future Scheduled 2020-10-27 COVID-19 VACCINE (3 - [facility] Test 00:00:00 Booster for Pfizer Medical C enter series) [code = COVID-19 VACCINE (3 - Booster for Pfizer series)] Future Scheduled 2002-09-[address] [facility] Test 00:00:00 WELLNESS (YEAR 2 or Medical Center FIRST YEAR if no IPPE) [code = MEDICARE ANNUAL WELLNESS (YEAR 2 or FIRST YEAR if no IPPE)] Future Scheduled 1987-02-26 SHINGLES VACCINES ([address] [facility] Test 00:00:00 of 2) [code = SHINGLES Medic al Center VACCINES (1 of 2)] Encounters Start End Encounter Admission Attending Care Care Encounter Source Date/Time Date/Time Type Type Clinicians Facility Department ID 2021-07-15 Outpatient [facility] [id number] 17:16:54 Anderso n 2021-07-08 Outpatient 3 [id number] [facility] 10:25:09 [facility] [place] 2021-07-08 Outpatient 3 [id number] [facility] REF [id number] [facility] 10:23:05 [facility] [place] 2021-05-24 2021-06-03 Inpatient [facility] [id number] [place] 00:00:00 00:00:[address] 2020-10-30 2020-10-30 Emergency ER [facility] Emergency [id number] [facility] 15:16:00 15:16:00 2020-08-01 2020-08-01 Emergency ER [facility] Emergency [id number] [facility] 17:23:00 17:23:00 2020-06-25 2020-06-25 Outpatient [facility] [id number] [facility] 00:00:00 00:00:00 2020-06-18 2020-06-18 Outpatient EL SLE SLE [id number] [facility] 00:00:00 00:00:00 2020-06-11 2020-06-11 Outpatient SLE SLE [id number] [facility] 00:00:00 00:00:00 2020-06-11 2020-06-11 Outpatient EL [facility] SLE [id number] [facility] 00:00:00 00:00:00 2020-06-09 2020-06-09 Outpatient SLE SLE [id number] [facility] 00:00:00 00:00:00 2020-05-28 2020-05-28 Outpatient EL [facility] SLE [id number] [facility] 00:00:00 00:00:00 Results Test Description Test Time Test Comments Results Result Comments Source SARS-CoV-2 (COVID-19) RNA [Presence] in Respiratory sp ecimen by 2021-05-31 13:05:35 NICO with probe detection Test Item Value Reference Range Interpretation Comme nts SARS-CoV-2 (COVID-19) RNA [Presence] in Respiratory Not detected No t-Detected specimen by NICO with probe detection (test code = 69149-2) Whether patient is employed in a healthcare setting (test code = 17344-9) Whether the patient has symptoms related to condition of interest (test code = 87800-8) Patient was hospitalized because of this condition (test code = 21426-0) Whether the patient was admitted to intensive care unit (ICU) for condition of interest (test code = 21177-8) Whether patient resides in a congregate care setting (test code = 36049-7) EMILIA LOYOLARS-CoV-2 (COVID-19) RNA [Presence] in Respiratory specimen by NICO with probe [id number] 14:50:55 Test Item Value Reference Range Interpretation Comments SARS-CoV-2 (COVID-19) RNA Not detected Not-Detected [Presence] in Respiratory specimen by NICO with probe detection (test code = 46190-9) Whether patient is employed in a healthcare setting (test code = 92554-5) Whether the patient has symptoms related to condition of interest (test code = 86293-4) Patient was hospitalized because of this condition (test code = 40100-9) Whether the patient was admitted to intensive care unit (ICU) for condition of interest (test code = 51624-4) Whether patient resides in a congregate care setting (test code = 73750-7) EMILIA NARAYANANCT, BRAIN, WITHOUT [id number] 16:24:00Unlisted Reason for Exam - Click Yes and Enter Reason Below->No [facility] : 02/26/1936 Sex: MFINAL REPORT CT, BRAIN, WITHOUT CONTRAST INDICATION: Head trauma, minor (Age > 65y) TECHNIQUE: Noncontrast axial imaging was obtained from the vertex to the skull base. Axial images were reconstructed using a bone algorithm. DOSE REDUCTION: Dose modulation, iterative reconstruction,and/or weight-based adjustment of the mA/kV was utilized to reduce the radiation dose to as low as reasonably achievable. COMPARISON: CT 08/01/2020 FINDINGS: Intracranial: No intracranial hemorrhage or abnormal extra-axial collection. No evidence of acute territorial infarct. No mass effect. No hydrocephalus. Generalized cerebral atrophy with ex vacuo dilatation of the ventricular system proportionateto sulci. Scattered foci of hypoattenuation within the periventricular and subcortical white matter are a nonspecific finding commonly attributed to chronic small vessel ischemic disease. Osseous structures: No fracture. No suspicious lesion. Paranasal sinuses and mastoid air cells: No evidence of sinu sitis. Mastoids are clear. Orbital contents: Globes are intact. IMPRESSION: No acute intracranial hemorrhage. If there is persistent clinical concern for intracranial pathology, MR examination is recommended for further characterization. Signed: Nilda Wei Verified Date/Time: 10/30/2020 16:24:37 BLOOD [id number] 19:01:00 Test Item Value Reference Range Interpretation Comments CULTURE (BEAKER) (test No growth in 5 days code = 1095) BLOOD [id number] 19:01:00 Test Item Value Reference Range Interpretation Comments CULTURE (BEAKER) (test No growth in 5 days code = 1095) POCT-GLUCOSE [id number] 15:46:00 Test Item Value Reference Range Interpretation Comments POC-GLUCOSE METER 157 mg/dL 70-110 H : TESTED A T [facility] 1317 (BEAKER) (test code [address], = 1538) [facility] [address]: Field Inspector/Techni jorge ID = [id number] for Yovana Bolton POCT-GLUCOSE [id number] 11:49:00 Test Item Value Reference Range Interpretation Comments POC-GLUCOSE METER 169 mg/dL 70-110 H : TESTED A T [facility] 1317 (BEAKER) (test code [address], = 1538) [facility] 77 478: Field Inspector/Techni jorge ID = [id number] for Yovana Bolton POCT-GLUCOSE [id number] 07:51:00 Test Item Value Reference Range Interpretation Comments POC-GLUCOSE METER 125 mg/dL 70-110 H : TESTED A T [facility] 1317 (BEAKER) (test code [address], = 1538) [facility] 77 478: Field Inspector/Techni jorge ID = [id number] for Yovana Bolton [id number] 06:35:00 Test Item Value Reference Range Interpretation Comments MAGNESIUM (BEAKER) 1.6 mg/dL 1.5-3.0 Specimen slightly (test code = 627) hemolyzed Field Inspector ID - [id number] ID - [id number] ID - [id number] ID - [id number] METABOLIC [id number] 06:33:00 Test Item Value Reference Range Interpretation Comments SODIUM (BEAKER) 136 meq/L 135-148 (test code = 381) POTASSIUM (BEAKER) 4.1 meq/L 3.6-5.5 Specimen slightly (test code = 379) hemolyzed CHLORIDE (BEAKER) 99 meq/L 98-106 (test code = 382) CO2 (BEAKER) (test 27 meq/L 20-29 code = 355) BLOOD UREA NITROGEN 25 mg/dL 10-26 (BEAKER) (test code = 354) CREATININE (BEAKER) 0.76 mg/dL 0.50-1.20 Specimen slightly (test code = 358) hemolyzed GLUCOSE RANDOM 157 mg/dL 70-110 H (BEAKER) (test code = 652) CALCIUM (BEAKER) 8.7 mg/dL 8.5-10.5 (test code = 697) EGFR (BEAKER) (test 98 mL/min/1.73 ESTIMA INA GFR IS code = 1092) sq m NOT ACCURATE CREATININE CLEARANCE IN PREDICTING GLOMERULAR FILTRATION RATE . ESTIMATED GFR I S NOT APPLICABLE FOR DIALYSIS PATIEN TS. Field Inspector ID - [id number] ID - [id number] ID - [id number] ID - [id number] ID - [id number] ID - [id number] ID - [id number] ID - [id number] ID - [id number] 06:32:00 Test Item Value Reference Range Interpretation Comments PHOSPHORUS (BEAKER) 2.4 mg/dL 2.5-4.5 L Specimen slightly (test code = 604) hemolyzed Field Inspector ID - [id number] W/PLT COUNT & AUTO [id number] 06:11:00 Test Item Value Reference Range Interpretation Comments WHITE BLOOD CELL COUNT (BEAKER) 7.8 K/ L 4.0-10.0 (test code = 775) RED BLOOD CELL COUNT (BEAKER) 5.28 M/ L 4.20-5.80 (test code = 761) HEMOGLOBIN (BEAKER) (test code = 14.6 GM/DL 13.0-16.8 410) HEMATOCRIT (BEAKER) (test code = 47.0 % 36.0-50.0 411) MEAN CORPUSCULAR VOLUME (BEAKER) 89.0 fL 82.0-99.0 (test code = 753) MEAN CORPUSCULAR HEMOGLOBIN 27.7 pg 27.0-33.0 (BEAKER) (test code = 751) MEAN CORPUSCULAR HEMOGLOBIN CONC 31.1 GM/DL 32.0-36.0 L (BEAKER) (test code = 752) RED CELL DISTRIBUTION WIDTH 19.2 % 12.0-15.0 H (BEAKER) (test code = 412) PLATELET COUNT (BEAKER) (test 242 K/CU MM 150-430 code = 756) MEAN PLATELET VOLUME (BEAKER) 9.7 fL 6.0-11.5 (test code = 754) NUCLEATED RED BLOOD CELLS 0 /100 WBC 0-0 (BEAKER) (test code = 413) NEUTROPHILS RELATIVE PERCENT 64 % (BEAKER) (test code = 429) LYMPHOCYTES RELATIVE PERCENT 22 % (BEAKER) (test code = 430) MONOCYTES RELATIVE PERCENT 10 % (BEAKER) (test code = 431) EOSINOPHILS RELATIVE PERCENT 3 % (BEAKER) (test code = 432) BASOPHILS RELATIVE PERCENT 1 % (BEAKER) (test code = 437) NEUTROPHILS ABSOLUTE COUNT 4.98 K/ L 1.80-8.00 (BEAKER) (test code = 670) LYMPHOCYTES ABSOLUTE COUNT 1.69 K/ L 1.48-4.50 (BEAKER) (test code = 414) MONOCYTES ABSOLUTE COUNT (BEAKER) 0.81 K/ L 0.00-1.30 (test code = 415) EOSINOPHILS ABSOLUTE COUNT 0.22 K/ L 0.00-0.50 (BEAKER) (test code = 416) BASOPHILS ABSOLUTE COUNT (BEAKER) 0.06 K/ L 0.00-0.20 (test code = 417) IMMATURE GRANULOCYTES-RELATIVE 0 % 0-0 PERCENT (BEAKER) (test code = 2801) VANCOMYCIN LEVEL, [id number] 20:19:00 Test Item Value Reference Range Interpretation Comments VANCOMYCIN TROUGH (BEAKER) (test 8.0 ug/mL 10.0-20.0 L code = 522) Field Inspector ID - [id number] [id number] 20:17:00 Test Item Value Reference Range Interpretation Comments POC-GLUCOSE METER 241 mg/dL 70-110 H : TESTED A T [facility] 1317 (BEAKER) (test code [facility], = 1538) [place] [address]: Field Inspector/Techni jorge ID = [id number] for Will iams, Silvia POCT-GLUCOSE [id number] 18:00:00 Test Item Value Reference Range Interpretation Comments POC-GLUCOSE METER 108 mg/dL 70-110 : TESTED A T [facility] 1317 (BEAKER) (test code [facility], = 1538) [place] [address]: Field Inspector/Techni jorge ID = [id number] for Kel h, Lena POCT-GLUCOSE [id number] 12:59:00 Test Item Value Reference Range Interpretation Comments POC-GLUCOSE METER 183 mg/dL 70-110 H : TESTED A T [facility] 1317 (BEAKER) (test code [facility], = 1538) [place] [address]: Field Inspector/Techni jorge ID = [id number] for Kel h, Lena VITAMIN D, [id number] 10:40:00 Test Item Value Reference Range Interpretation Comments VITAMIN D 25-OH (BEAKER) (test 18.6 ng/mL 6.6-49.9 code = 2764) Effective 03/22/2017: Reference Range ChangeNew: 6.6-49.9 ng/mL Previous: 13.0- 47.8 ng/mLRecommendedVitamin D Target Range: 30.0-40.0 ng/mLOperator ID - TONIA Nava POCT-GLUCOSE [id number] 08:04:00 Test Item Value Reference Range Interpretation Comments POC-GLUCOSE METER 152 mg/dL 70-110 H : TESTED A T [facility] 1317 (BEAKER) (test code [address], = 1538) [facility] 77 [address]: Field Inspector/Techni jorge ID = [id number] for Kel Lena savage [id number] 06:28:00 Test Item Value Reference Range Interpretation Comments MAGNESIUM (BEAKER) 1.7 mg/dL 1.5-3.0 Specimen slightly (test code = 627) hemolyzed Field Inspector ID - [id number] ID - [id number] ID - [id number] ID - [id number] KINASE (CK)2020-08-04 06:28:00 Test Item Value Reference Range Interpretation Comments CREATINE KINASE TOTAL (BEAKER) (test 92 U/L 40-250 code = 380) Field Inspector ID - [id number] METABOLIC [id number] 06:27:00 Test Item Value Reference Range Interpretation Comments SODIUM (BEAKER) 137 meq/L 135-148 (test code = 381) POTASSIUM (BEAKER) 4.2 meq/L 3.6-5.5 Specimen slightly (test code = 379) hemolyzed CHLORIDE (BEAKER) 99 meq/L 98-106 (test code = 382) CO2 (BEAKER) (test 28 meq/L 20-29 code = 355) BLOOD UREA NITROGEN 36 mg/dL 10-26 H (BEAKER) (test code = 354) CREATININE (BEAKER) 0.82 mg/dL 0.50-1.20 Specimen slightly (test code = 358) hemolyzed GLUCOSE RANDOM 168 mg/dL 70-110 H (BEAKER) (test code = 652) CALCIUM (BEAKER) 8.2 mg/dL 8.5-10.5 L (test code = 697) EGFR (BEAKER) (test 90 mL/min/1.73 ESTIMA INA GFR IS code = 1092) sq m NOT ACCURATE CREATININE CLEARANCE IN PREDICTING GLOMERULAR FILTRATION RATE . ESTIMATED GFR I S NOT APPLICABLE FOR DIALYSIS PATIEN TS. Field Inspector ID - [id number] ID - [id number] ID - [id number] ID - [id number] ID - [id number] ID - [id number] ID - [id number] ID - [id number] ID - [id number] 06:25:00 Test Item Value Reference Range Interpretation Comments PHOSPHORUS (BEAKER) 2.3 mg/dL 2.5-4.5 L Specimen slightly (test code = 604) hemolyzed Field Inspector ID - [id number]/S, RENAL, [id number] 04:15:00Reason for exam:->[facility] : 02/26/1936 Sex: MFINAL REPORT U/S, RENAL, COMPLETE CLINICAL INDICATION: DAVID COMPARISON: None TECHNIQUE: The kidneys and urinary bladder were evaluated using real time mehta scale and color Doppler sonography. FINDINGS:Right kidney: Size: 11.3 x 4.4 x 5.3 cm. Parenchyma: Normal echogenicity. No cysts. Nostones. Hydronephrosis: None. Left kidney: Size: 11.1 x 6.1 x 5.5 cm. Parenchyma: Normal echogenicity. No cysts. No stones. Hydronephrosis: None. Renal Vasculature: Doppler interrogation reveals preserved vascular flow in the main renal arteries and veins bilaterally. Urinary bladder: Unremarkable. Additional findings: None. IMPRESSION: Unremarkable renal ultrasound. Signed: Rosario Staples Verified Date/Time: 08/04/2020 04:15:11 POCT-GLUCOSE [id number] 19:58:00 Test Item Value Reference Range Interpretation Comments POC-GLUCOSE METER 229 mg/dL 70-110 H : TESTED A T [facility] 1317 (BEAKER) (test code [address], = 1538) [place] [address]: Field Inspector/Techni jorge ID = [id number] for Silvia Marsh POCT-GLUCOSE [id number] 15:46:00 Test Item Value Reference Range Interpretation Comments POC-GLUCOSE METER 218 mg/dL 70-110 H : TESTED A T [facility] 1317 (BEAKER) (test code [address], = 1538) [place] [address]: Field Inspector/Techni jorge ID = [id number] for Ali, Darrell PROTHROMBIN [id number] 12:50:00 Test Item Value Reference Range Interpretation Comments PROTIME (BEAKER) 11.4 seconds 9.3-12.0 Final Infor mation (test code = 759) (Auto Outp ut) INR (BEAKER) (test 1.05 See_Comment Final Inf ormation code = 370) (Auto Output) [Automated mess age] The system [employer] generated this result transmitted ref erence range: <=5.90. The reference range was not used to int erpret this result as normal/abnormal . RECOMMENDED COUMADIN/WARFARIN INR THERAPY RANGESSTANDARD DOSE: 2.0 - 3.0 Includes: PROPHYLAXIS for venous thrombosis, systemic embolization; TREATMENT for venous thrombosis and/or pulmonary embolus.HIGH RISK: Target INR is 2.5-3.5 for patients with mechanical heart valves.[id number] 12:50:00 Test Item Value Reference Range Interpretation Comments PARTIAL THROMBOPLASTIN 26.0 seconds 23.0-35.0 Final Information TIME (BEAKER) (test (Auto Ou tput) code = 760) POCT-GLUCOSE [id number] 12:28:00 Test Item Value Reference Range Interpretation Comments POC-GLUCOSE METER 180 mg/dL 70-110 H : TESTED A T [facility] 1317 (BEAKER) (test code [address], = 1538) [place] [address]: Field Inspector/Techni jorge ID = [id number] for Ali, Darrell URIC ACID, RANDOM [id number] 10:53:00 Test Item Value Reference Range Interpretation Comments URIC ACID, URINE (BEAKER) (test 17.5 mg/dL code = 1572) Reference Range: No NormalsOperator ID - AAHAMIDPOCT-GLUCOSE [id number] 07:37:00 Test Item Value Reference Range Interpretation Comments POC-GLUCOSE METER 157 mg/dL 70-110 H : TESTED A T [facility] 1317 (BEAKER) (test code [address], = 1538) [place] [address]: Field Inspector/Techni jorge ID = [id number] for Buff ord, Judith [id number] 07:09:00 Test Item Value Reference Range Interpretation Comments MAGNESIUM (BEAKER) 1.9 mg/dL 1.5-3.0 Specimen moderately (test code = 627) hemolyzed Field Inspector ID - [id number] ID - [id number] ID - [id number] ID - [id number] BASIC METABOLIC [id number] 07:08:00 Test Item Value Reference Range Interpretation Comments SODIUM (BEAKER) 134 meq/L 135-148 L (test code = 381) POTASSIUM (BEAKER) 3.1 meq/L 3.6-5.5 L Specimen moderately (test code = 379) hemolyzed CHLORIDE (BEAKER) 92 meq/L 98-106 L (test code = 382) CO2 (BEAKER) (test 29 meq/L 20-29 code = 355) BLOOD UREA NITROGEN 63 mg/dL 10-26 H (BEAKER) (test code = 354) CREATININE (BEAKER) 1.09 mg/dL 0.50-1.20 Specimen moderately (test code = 358) hemolyzed GLUCOSE RANDOM 170 mg/dL 70-110 H (BEAKER) (test code = 652) CALCIUM (BEAKER) 8.9 mg/dL 8.5-10.5 (test code = 697) EGFR (BEAKER) (test 65 mL/min/1.73 ESTIMA INA GFR IS code = 1092) sq m NOT ACCURATE CREATININE CLEARANCE IN PREDICTING GLOMERULAR FILTRATION RATE . ESTIMATED GFR I S NOT APPLICABLE FOR DIALYSIS PATIEN TS. Field Inspector ID - [id number] ID - [id number] ID - [id number] ID - [id number] ID - bisw46Jjnohinq ID - [id number] ID - [id number] ID - lowx68Wavaueel ID - ulra02Qzusorue ID - [id number] 07:06:00 Test Item Value Reference Range Interpretation Comments PHOSPHORUS (BEAKER) 2.0 mg/dL 2.5-4.5 L Specimen moderately (test code = 604) hemolyzed Field Inspector ID - [id number] 20:49:00 Test Item Value Reference Range Interpretation Comments POC-GLUCOSE METER 248 mg/dL 70-110 H : TESTED A T SLSL 1317 (BEAKER) (test code [address], = 1538) [place] [address]: Field Inspector/Techni jorge ID = [id number] for Roberto Sarabia POCT-GLUCOSE [id number] 16:52:00 Test Item Value Reference Range Interpretation Comments POC-GLUCOSE METER 161 mg/dL 70-110 H : TESTED A T [facility] 1317 (BEAKER) (test code [address], = 1538) [place] [address]: Field Inspector/Techni jorge ID = [id number] for Kel Lena savage TSH/FREE T4 IF [id number] 14:24:00 Test Item Value Reference Range Interpretation Comments THYROID STIMULATING HORMONE 1.170 uIU/mL 0.350-5.500 (BEAKER) (test code = 772) Field Inspector ID - [id number] 13:59:00 Test Item Value Reference Range Interpretation Comments MAGNESIUM (BEAKER) 1.7 mg/dL 1.5-3.0 Specimen moderately (test code = 627) hemolyzed Field Inspector ID - ADMINOperator ID - ADMINOperator ID - ADMINOperator ID - ADMIN CREATININE, RANDOM [id number] 11:50:00 Test Item Value Reference Range Interpretation Comments CREATININE URINE (BEAKER) (test 38.4 mg/dL code = 375) Reference Range: No NormalsOperator ID - PARISHHPROTEIN, RANDOM [id number] 11:43:00 Test Item Value Reference Range Interpretation Comments PROTEIN, URINE (BEAKER) (test code = 1 mg/dL 0-14 1569) Field Inspector ID - PARISHHPOCT-GLUCOSE [id number] 11:37:00 Test Item Value Reference Range Interpretation Comments POC-GLUCOSE METER 196 mg/dL 70-110 H : TESTED A T [facility] 1317 (BEAKER) (test code [address], = 1538) [place] [address]: Field Inspector/Techni jorge ID = [id number] for Kel h, Lena URINALYSIS WITH MICROSCOPIC IF [id number] 09:45:00 Test Item Value Reference Range Interpretation Comments COLOR (BEAKER) (test code = 470) Yellow CLARITY (BEAKER) (test code = 469) Clear SPECIFIC GRAVITY UA (BEAKER) (test 1.010 1.001-1.035 code = 468) PH UA (BEAKER) (test code = 467) 6.5 5.0-8.0 PROTEIN UA (BEAKER) (test code = Negative Negative 464) GLUCOSE UA (BEAKER) (test code = Negative Negative 365) KETONES UA (BEAKER) (test code = Negative Negative 371) BILIRUBIN UA (BEAKER) (test code = Negative Negative 462) BLOOD UA (BEAKER) (test code = 461) Negative Negative NITRITE UA (BEAKER) (test code = Negative Negative 465) LEUKOCYTE ESTERASE UA (BEAKER) Negative Negative (test code = 466) UROBILINOGEN UA (BEAKER) (test code 0.2 mg/dL 0.2-1.0 = 463) SOURCE(BEAKER) (test code = 2795) POCT-GLUCOSE [id number] 09:33:00 Test Item Value Reference Range Interpretation Comments POC-GLUCOSE METER 173 mg/dL 70-110 H : TESTED A T [facility] 1317 (BEAKER) (test code [address], = 1538) [place] [address]: Field Inspector/Techni jorge ID = [id number] for Kel Lena savage RAD, CHEST, 1 VIEW, NON [id number] 08:12:00Reason for exam:->fall, leukocytosisShould this be performed at the bedside?->Yes [facility] : 02/26/1936 Sex: MFINAL REPORT RAD, CHEST, 1 VIEW, NON DEPT INDICATION: fall, leukocytosis COMPARISON: June 21, 2016 FINDINGS: Portable frontal view of the chest. IMPRESSION: Support Lines: None Lungs and pleura: Hypoinflated lungs with bibasilar subsegmental atelectasis. No pneumothorax.Heart and mediastinum: Interval vascular surgical changes. Sternotomy wires are intact. Additional findings: Radiopaque foreign object overlies the right cervical thoracic soft tissue region. Correlation for positioning outside the patient is advised. Signed: JR Chatterjee Robert MDReport Verified Date/Time: 08/02/2020 08:12:36 Reading Location: [address] Neuro Reading Room BASIC METABOLIC [id number] 08:08:00 Test Item Value Reference Range Interpretation Comments SODIUM (BEAKER) 136 meq/L 135-148 (test code = 381) POTASSIUM (BEAKER) 2.5 meq/L 3.6-5.5 LL (test code = 379) CHLORIDE (BEAKER) 88 meq/L 98-106 L (test code = 382) CO2 (BEAKER) (test 31 meq/L 20-29 H code = 355) BLOOD UREA NITROGEN 94 mg/dL 10-26 H (BEAKER) (test code = 354) CREATININE (BEAKER) 1.22 mg/dL 0.50-1.20 H (test code = 358) GLUCOSE RANDOM 186 mg/dL 70-110 H (BEAKER) (test code = 652) CALCIUM (BEAKER) 9.6 mg/dL 8.5-10.5 (test code = 697) EGFR (BEAKER) (test 57 mL/min/1.73 ESTIMA INA GFR IS code = 1092) sq m NOT ACCURATE CREATININE CLEARANCE IN PREDICTING GLOMERULAR FILTRATION RATE . ESTIMATED GFR I S NOT APPLICABLE FOR DIALYSIS PATIEN TS. Field Inspector ID - VANANHOperator ID - VANANHOperator ID - VANANHOperator ID - VANANHOperator ID - VANANHOperator ID - VANANHOperator ID - VANANHOperator ID - VANANHOperator ID - VANANHOperator ID - [id number] 08:08:00 Test Item Value Reference Range Interpretation Comments MAGNESIUM (BEAKER) (test code = 1.8 mg/dL 1.5-3.0 627) Field Inspector ID - VANANHOperator ID - VANANHOperator ID - VANANHOperator ID - VANANH [id number] 08:05:00 Test Item Value Reference Range Interpretation Comments PHOSPHORUS (BEAKER) (test code = 3.1 mg/dL 2.5-4.5 604) Field Inspector ID - VANANHCBC W/PLT COUNT & AUTO [id number] 07:46:00 Test Item Value Reference Range Interpretation Comments WHITE BLOOD CELL COUNT (BEAKER) 9.2 K/ L 4.0-10.0 (test code = 775) RED BLOOD CELL COUNT (BEAKER) 4.96 M/ L 4.20-5.80 (test code = 761) HEMOGLOBIN (BEAKER) (test code = 13.8 GM/DL 13.0-16.8 410) HEMATOCRIT (BEAKER) (test code = 41.8 % 36.0-50.0 411) MEAN CORPUSCULAR VOLUME (BEAKER) 84.3 fL 82.0-99.0 (test code = 753) MEAN CORPUSCULAR HEMOGLOBIN 27.8 pg 27.0-33.0 (BEAKER) (test code = 751) MEAN CORPUSCULAR HEMOGLOBIN CONC 33.0 GM/DL 32.0-36.0 (BEAKER) (test code = 752) RED CELL DISTRIBUTION WIDTH 18.6 % 12.0-15.0 H (BEAKER) (test code = 412) PLATELET COUNT (BEAKER) (test 265 K/CU MM 150-430 code = 756) MEAN PLATELET VOLUME (BEAKER) 9.5 fL 6.0-11.5 (test code = 754) NUCLEATED RED BLOOD CELLS 0 /100 WBC 0-0 (BEAKER) (test code = 413) NEUTROPHILS RELATIVE PERCENT 72 % (BEAKER) (test code = 429) LYMPHOCYTES RELATIVE PERCENT 14 % (BEAKER) (test code = 430) MONOCYTES RELATIVE PERCENT 13 % (BEAKER) (test code = 431) EOSINOPHILS RELATIVE PERCENT 1 % (BEAKER) (test code = 432) BASOPHILS RELATIVE PERCENT 0 % (BEAKER) (test code = 437) NEUTROPHILS ABSOLUTE COUNT 6.60 K/ L 1.80-8.00 (BEAKER) (test code = 670) LYMPHOCYTES ABSOLUTE COUNT 1.28 K/ L 1.48-4.50 L (BEAKER) (test code = 414) MONOCYTES ABSOLUTE COUNT (BEAKER) 1.16 K/ L 0.00-1.30 (test code = 415) EOSINOPHILS ABSOLUTE COUNT 0.06 K/ L 0.00-0.50 (BEAKER) (test code = 416) BASOPHILS ABSOLUTE COUNT (BEAKER) 0.03 K/ L 0.00-0.20 (test code = 417) IMMATURE GRANULOCYTES-RELATIVE 0 % 0-0 PERCENT (BEAKER) (test code = 2801) POCT-GLUCOSE [id number] 01:16:00 Test Item Value Reference Range Interpretation Comments POC-GLUCOSE METER 215 mg/dL 70-110 H : TESTED A T [facility] 1317 (BEAKER) (test code [address], = 1538) [facility] [address]: Field Inspector/Techni jorge ID = [id number] for hayder Barrientos SARS-COV2/RT-PCR ([facility] [place] [facility])2020-08-01 22:04:00 Test Item Value Reference Range Interpretation Comments SARS-COV2/RT-PCR Negative Not Detected, Performanc e of the Xpert (test code = Negative, See Xpress [id number]) external report SARS-CoV-2/F madhuri/RSV test for linked test has only bee n established in nasopharyngeal swab specimens. Use of the Xpert Xpress SARS-CoV-2/Flu/ RSV test with other spec imen types has not b een assessed and pe rformance characteristics are unknown. As wit h any molecular test, mutations withi n the targeted geneti c regions identified by t cordell Xpert Xpress SARS-CoV-2/Flu/ RSV test could affect pr sandra and/or probe bi nding resulting in fa ilure to detect the pres ence of virus or the vi abdullahi being detected less predictably.Neg ative results do not preclude SARS-CoV-2, Inf luenza A/B, or RSV inf ection and should not be used as the sole bas is for treatment or ot her patient managem ent decisions. Resu lts from the Xpert Xpres s SARS-CoV-2/Flu/ RSV test should be corre lated with the clinic al history, epidem iological data, and other data available to th e clinician evalu ating the patient. Invali d test results may occ ur from improper specim en collection; jesus lure to follow the joellen mmended sample collecti on, handling, and s torage procedures; erika hnical error. False ne gative results may occ ur if virus is presen t at levels below th e analytical limi t of detection (LOD: 131 copies/mL). Vir al nucleic acid ma y persist in vivo, indepe ndent of virus viability . Detection of an alyte target(s) does not imply that the corres ponding virus(es) are i nfectious or are the caus ative agents for clin ical symptoms. Recen t patient exposure to Flu Mist or other live atte nuated influenza vacci ann may cause inaccurat e positive result s.This test has been a uthorized by FDA under an EUA for use by authoriz ed laboratories. T his test is only authori zed for the duration of the declaration tiffanie t circumstances e xist justifying the authorization o f emergency use o f in vitro diagnosti c tests for detection a nd/or diagnosis of CO VID-19 under Section 5 64(b)(1) of the Federal Food, Drug and Cosmet ic Act, 21 U.S.C. 360bbb-3(b)(1), unless the authorizati on is terminated or r evoked sooner.Fact She et for Healthcare Prov iders: https://www.[employer]/ Documents/Xpert %20Xpress %82NYHK-ZnF-5-F madhuri-RSV/30 2-4508%20Rev.%2 0B%20HCP% 20Fact%20Sheet. pdfFact Sheet for Healt hcare Patients: https://www.[employer].Compliance 360/ Documents/Xpert %20Xpress %36TXGE-BwD-0-F madhuri-RSV/30 2-4507%20Rev.%2 0B%20Pati ent%20Fact%20Sh eet.pdf SARS-COV-2 SLSL Performed at:[facility] (test code = Geoff Musesheyla [id number]) [place], [place] [address]l h: [phone] [id number] 21:34:00 Test Item Value Reference Range Interpretation Comments MAGNESIUM (BEAKER) (test code = 1.6 mg/dL 1.5-3.0 627) Field Inspector ID - RAHMAOperator ID - RAHMAOperator ID - RAHMAOperator ID - [id number] CT, BRAIN, WITHOUT [id number] 20:43:00Reason for exam:->FALLWhat is the patient's sedation requirement?->No Sedation [facility] : 1935 Sex: MFINAL REPORT CT Head without contrast CLINICAL HISTORY: Unlisted Reason for ExamFALLTECHNIQUE: Contiguous axial images through the head without contrast. This exam was performed according to the departmental dose optimization program which includes automated exposure control, adjustment of the mA and/or kV according to the patient size, and/or use of an iterative reconstruction technique. COMPARISON: None FINDINGS: There is no CT evidence of acute infarct or intracranial hemorrhage.There is periventricular and subcortical white matter hypodensity which is nonspecific but compatible with chronic microvascular ischemic change. There are atherosclerotic calcifications of the intracranial circulation. There is generalized parenchymal volume loss without hydrocephalus, midline shift,or apparent mass effect. Basilar cisterns are patent. There are no extra-axial fluid collections. The skull is intact. Mucosal thickening in the ethmoid sinuses. Intraorbital contents are unremarkable.IMPRESSION: No CT evidence of acute infarct, hemorrhage, or hydrocephalus. Signed: Rosario Staplesemanuel Verified Date/Time: 08/01/2020 20:43:14 [facility] [id number] 20:37:00 Test Item Value Reference Range Interpretation Comments TROPONIN I (BEAKER) (test code = 0.14 ng/mL 0.00-0.15 397) Troponin I (TnI) levels must be interpreted in the context of the presenting symptoms and the clinical findings. Elevated TnI levels indicate myocardial damage, but are not specific for ischemic heart disease. Elevated TnI levels are seen in patients with other cardiac conditions (including myocarditis and congestive heart failure), and slight TnI elevations occur in patients with other conditions, including sepsis, renal failure, acidosis, acute neurological disease, and persistent tachyarrhythmia.Field Inspector ID - RAHMABASIC METABOLIC PANEL 2020-08-01 20:31:00 Test Item Value Reference Range Interpretation Comments SODIUM (BEAKER) 130 meq/L 135-148 L (test code = 381) POTASSIUM (BEAKER) 2.3 meq/L 3.6-5.5 LL (test code = 379) CHLORIDE (BEAKER) 85 meq/L 98-106 L (test code = 382) CO2 (BEAKER) (test 30 meq/L 20-29 H code = 355) BLOOD UREA NITROGEN 104 mg/dL 10-26 H (BEAKER) (test code = 354) CREATININE (BEAKER) 1.48 mg/dL 0.50-1.20 H (test code = 358) GLUCOSE RANDOM 261 mg/dL 70-110 H (BEAKER) (test code = 652) CALCIUM (BEAKER) 9.7 mg/dL 8.5-10.5 (test code = 697) EGFR (BEAKER) (test 45 mL/min/1.73 ESTIMA INA GFR IS code = 1092) sq m NOT ACCURATE CREATININE CLEARANCE IN PREDICTING GLOMERULAR FILTRATION RATE . ESTIMATED GFR I S NOT APPLICABLE FOR DIALYSIS PATIEN TS. Field Inspector ID - RAHMAOperator ID - RAHMAOperator ID - RAHMAOperator ID - RAHMAOperator ID - RAHMAOperator ID - RAHMAOperator ID - RAHMAOperator ID - RAHMAOperator ID - RAHMAOperator ID - RAHMAOperator ID- RAHMAOperator ID - RAHMAOperator ID - RAHMACBC W/PLT COUNT & AUTO [id number] 20:16:00 Test Item Value Reference Range Interpretation Comments WHITE BLOOD CELL COUNT (BEAKER) 11.6 K/ L 4.0-10.0 H (test code = 775) RED BLOOD CELL COUNT (BEAKER) 5.01 M/ L 4.20-5.80 (test code = 761) HEMOGLOBIN (BEAKER) (test code = 13.9 GM/DL 13.0-16.8 410) HEMATOCRIT (BEAKER) (test code = 42.2 % 36.0-50.0 411) MEAN CORPUSCULAR VOLUME (BEAKER) 84.2 fL 82.0-99.0 (test code = 753) MEAN CORPUSCULAR HEMOGLOBIN 27.7 pg 27.0-33.0 (BEAKER) (test code = 751) MEAN CORPUSCULAR HEMOGLOBIN CONC 32.9 GM/DL 32.0-36.0 (BEAKER) (test code = 752) RED CELL DISTRIBUTION WIDTH 18.6 % 12.0-15.0 H (BEAKER) (test code = 412) PLATELET COUNT (BEAKER) (test 289 K/CU MM 150-430 code = 756) MEAN PLATELET VOLUME (BEAKER) 9.6 fL 6.0-11.5 (test code = 754) NUCLEATED RED BLOOD CELLS 0 /100 WBC 0-0 (BEAKER) (test code = 413) NEUTROPHILS RELATIVE PERCENT 72 % (BEAKER) (test code = 429) LYMPHOCYTES RELATIVE PERCENT 15 % (BEAKER) (test code = 430) MONOCYTES RELATIVE PERCENT 12 % (BEAKER) (test code = 431) EOSINOPHILS RELATIVE PERCENT 1 % (BEAKER) (test code = 432) BASOPHILS RELATIVE PERCENT 0 % (BEAKER) (test code = 437) NEUTROPHILS ABSOLUTE COUNT 8.40 K/ L 1.80-8.00 H (BEAKER) (test code = 670) LYMPHOCYTES ABSOLUTE COUNT 1.73 K/ L 1.48-4.50 (BEAKER) (test code = 414) MONOCYTES ABSOLUTE COUNT (BEAKER) 1.34 K/ L 0.00-1.30 H (test code = 415) EOSINOPHILS ABSOLUTE COUNT 0.07 K/ L 0.00-0.50 (BEAKER) (test code = 416) BASOPHILS ABSOLUTE COUNT (BEAKER) 0.04 K/ L 0.00-0.20 (test code = 417) IMMATURE GRANULOCYTES-RELATIVE 0 % 0-0 PERCENT (BEAKER) (test code = 2801) Notes Date/Time Note Provider Source 2020-08-06 00:18:46-00:[address] [facility] DISCHARGE SUMMARY SUSANNE MACIAS FACILITY: [facility] Billing #: [id number] Room: [address] [place] [address] MR #: [id number] : 02/26/1936 DATE OF ADMISSION: 08/01/2020 DATE OF DISCHARGE: 08/05/2020 ATTENDING PHYSICIAN: Fabrizio Wade MD DISCHARGE CONDITION: Stable. DISPOSITION: [facility] facility. DISCHARGE DIAGNOSES: 1. Recurrent fall. 2. Severe hypokalemia. 3. Generalized weakness. 4. Acute renal failure on chronic kidney disease . 5. Coronary artery disease with history of coron romina artery bypass grafting. 6. History of cervical spinal stenosis. 7. Diabetes mellitus type 2. 8. Hypertension. 9. Chronic diastolic heart failure. 10. Right leg cellulitis. 11. Anemia of chronic disease. 12. Dyslipidemia. 13. Epistaxis, resolved. CONSULTANTS ON THE CASE: Dr. Rayo Wyman, ne phrologist. PROCEDURES: 1. CT head without contrast, no acute intracrani al hemorrhage or hydrocephalus. 2. Renal ultrasound, unremarkable. BRIEF COURSE OF HOSPITAL STAY: An 84-year-old branden ruvalcaba, who was referred into the ER, is status post fall. Dante martinez refer to Andrez and Meliton for further details. The patient was evalu ated in the ER. CT head did not show any acute findings. The patient was noted to be severely hypokalemic with less potas sium of 2.3 and continued aggressive potassium supplements. The patient was followed by cushion builder and underwent renal ult rasound with findings as mentioned above. The patient was als o repleted for phosphorus and magnesium. The patient's hypokale brandin has resolved. The patient had developed an episode o f epistaxis with spontaneous resolution. The patient was hel d back on aspirin and Plavix, which have now been resumed. Renal function also has shown improvement. Diuretics w ere withheld and the patient was given gentle hydration. I meeks ve discussed with Dr. Wyman today and recommends to hold off on Aldactone and to resume the patient on Lasix 20 mg p.o. daily and potassium supplement 20 mEq p.o. daily. The patient has severe deconditioning and was followed by PT and OT, [facility]. This h as been arranged and the patient will be [facility]. Details of discharge planning, followup have been discussed by myself with the patient's daughter over the phone and all qu estions were answered. The patient was treated for right leg cellulitis with IV vancomycin, to which he has responded we ll and the patient will be transitioned to doxycycline upon discharge. OBJECTIVE: GENERAL: The patient is alert and chetan ke, in no acute distress. CARDIOVASCULAR: Regular rate and rhythm. S1, S2 audible. LUNGS: Decreased basilar breath sounds. No wheez e or rhonchi. ABDOMEN: Soft, obese, and nontender. Bowel sound s present. EXTREMITIES: Bilateral trace pedal edema noted. Peripheral pulses palpable. LABORATORY STUDIES: Reviewed. MEDICATION UPON DISCHARGE: Please refer to jossy mccord medication reconciliation for further details. DIET: Heart healthy diet, 1800 calories. ACTIVITY: As tolerated. FOLLOW UP: Follow up with his primary care physi jorge with Dr. Wyman in 2-3 weeks for severe hypokalemia, a cute renal failure, diabetes mellitus type 2, deconditionin g, and right leg cellulitis. TOTAL TIME SPENT: More than 40 minutes in discha rge planning and disposition. YESY/ADY /[id number] 2020-08-02 13:09:16-00:[address] [facility] HISTORY AND PHYSICAL SUSANNE MACIAS FACILITY: [facility] Billing #: [id number] Room: [address] [place] [address] MR #: [id number] : 02/26/1936 DATE OF ADMISSION: 08/01/2020 ADMITTING PHYSICIAN: Fabrizio Wade MD CHIEF COMPLAINT: Status post fall. HISTORY OF PRESENT ILLNESS: An 84-year-old very pleasant male with past medical history of coronary artery dis ease with history of CABG, hypertension, dyslipidemia, yandel betes mellitus type 2, chronic kidney disease, and anemia of ch ronic disease, who lives at [facility], was r eferred into the ER for generalized weakness and fall. The pa pedro pablo is a poor historian. He is alert and awake. Denies an y pain or chest pain, palpitation, or shortness of breath. Denies any nausea, vomiting, abdominal pain, diarrhea, or d ysuria. The patient was evaluated in the ER, noted to have s evere hypokalemia with potassium of 2.3 and acute abram l failure with creatinine of 1.48, GFR of 45. The patient was a dmitted for further management. CT head did not show any acu te intracranial abnormality. PAST MEDICAL HISTORY: As mentioned above. PAST SURGICAL HISTORY: Remote history of CABG x5 . History of left heart catheterization, May 2020. SOCIAL HISTORY: The patient is a resident at [facility]. The patient is a former smoker. Negative for alcohol or recreational drug use. FAMILY HISTORY: Noncontributory. ALLERGIES: TO CIPROFLOXACIN AND HYDRALAZINE. MEDICATIONS: At home, please refer to home recon ciliation for further details. REVIEW OF SYSTEMS: A 14-point review of systems negative except tiffanie t mentioned in the HPI. PHYSICAL EXAMINATION: VITAL SIGNS: Blood pressure is 114/59, pulse 80, respiratory rate 18, temperature 96.7, and O2 saturation of 98% on room air. GENERAL: The patient is alert, awake, and orient ed to person, place, in no acute distress. Lying comfortably i n bed. Staff nurse present at bedside. HEENT: Bilateral pupils equally reactive. Anicte shankar sclerae. NECK: Supple. No JVD. CARDIOVASCULAR: Regular rate and rhythm. S1 and S2 audible. LUNGS: Decreased basilar breath sounds with occa sional rales. No wheeze. ABDOMEN: Obese, soft, and nontender. Bowel sound s present. No guarding, rigidity, or rebound tenderness. EXTREMITIES: Right lower extremity 1+ edema with distal half showing erythema, cellulitis with superficial ul cers. Peripheral pulses palpable. Left lower extremity trace to 1+ edema with minimal chronic venous congestion. No tenderness. Peripheral pulse palpable. NEUROLOGICAL: Mentation as mentioned above. Cran ial nerves 2 through 12 grossly intact. Motor strength, bilat eral upper extremities 4/5. Bilateral lower extremity stren gth 3/5. LABORATORY STUDIES: Reviewed. WBC 11.6, hemoglob in 13, hematocrit 42, and platelets 289,000. Sodium 138 , potassium 2.3, chloride 85, CO2 of 30, BUN 104, and creati nine 1.48. Blood glucose 261. Troponin negative x1. Urinaly sis unremarkable. CT head as mentioned above. Chest x-ray reviewed. ASSESSMENT: An 84-year-old male with: 1. Recurrent fall. 2. Severe hypokalemia. 3. Acute renal failure on chronic kidney disease . 4. Coronary artery disease with history of coron romina artery bypass grafting. 5. Cervical spinal stenosis. 6. Diabetes mellitus type 2. 7. Hypertension, controlled. 8. Chronic diastolic heart failure compensated. 9. Anemia of chronic disease. 10. Right lower extremity cellulitis. 11. Dyslipidemia. PLAN: The patient does not show any focal neurol ogical deficit. CT head was unremarkable. The patient w as recently at [facility] in [place] 07/06/2020, and had undergone neuroimaging workup including MRI brai n, which did not show any acute stroke and was followed by ne urologist. The patient has severe hypokalemia, likely contribut ing to his generalized weakness. We will continue to aggres sively replete potassium. I have discussed with cushion builder, Emigdio Llanos and the patient will be given gentle hydration a t 50 mL/h. We will request for blood cultures and start the pa tient on vancomycin and monitor the patient's cellulitis. We will request for physical therapy. We will hold off o n nephrotoxic medications including metformin, losartan, Aldac tone, and Lasix. We will continue to follow the patient's clinical outcomes. We will accordingly plan out the patie nt's further management and disposition. We will maintain the patient on DVT prophylaxis. The patient has [id number] advanced directive DNR status, which has been implemented . Please refer to orders for further details. TOTAL TIME SPENT: More than 60 minutes coordinat ing care with ER physician, cushion builder, and staff nurse. YESY/ADY /[id number] 2020-08-02 12:05:04-00:[address] [facility] CONSULTATION SUSANNE MACIAS FACILITY: [facility] Billing #: [id number] Room: [address] [place] [place] [address] MR #: [id number] : 02/26/1936 DATE OF ADMISSION: 08/01/2020 DATE OF CONSULTATION: 08/02/2020 REQUESTING PHYSICIAN: OPERATIONS REPRESENTATIVE: Miguel Angel Llanos MD CONSULTING PHYSICIAN: Dr. Wade. REASON FOR CONSULTATION: Elevated BUN and creati nine, fluid management, hypokalemia. 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 The patient came to the hospit al because of recurrent falls, found to have significant hypok alemia. For that reason, we have been consulted. The patient also found to have hypomagnesemia and apparently the patient h ad elevation in BUN and creatinine, creatinine 1.2 with GFR 57. Reviewing the record back in 2016, creatinine 0.9 with normal GFR. The patient denies taking any non-steroid. Denie s any recent change in his medication. The patient was starte d on gentle hydration, kidney function stabilized. Creatinin e down to 1.2, GFR of 57. Reviewing the record for the patient , the patient apparently at home on Lasix, levothyroxine, spir onolactone, and metformin with losartan. The patient upon arrival to the hospital has mar ginal low blood pressure down to 105. PAST MEDICAL HISTORY: 1. Diabetes. 2. Hypertension. 3. 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 4. Hypothyroidism. 5. Hyperlipidemia. 6. CVA. PAST SURGICAL HISTORY: Include CABG. ALLERGIES: HYDRALAZINE AND CIPROFLOXACIN. FAMILY HISTORY: Positive for hypertension. SOCIAL HISTORY: Lost his last month. Denies smoking. Denies drinking. Denies drug abuse. REVIEW OF SYSTEMS: HEAD AND NECK: No red eye. No ear pain. GI: No nausea, no vomiting. : No polyuria. No dysuria. No hematuria. EXPLOSIVES WORKER: Not applicable. RESPIRATORY: Shortness of breath. CARDIOVASCULAR: Has orthopnea. ENDOCRINE: No polydipsia. SKIN: No rash. PHYSICAL EXAMINATION: GENERAL: When I sewed the patient, blood pressur e 105/56, pulse of 51, afebrile. CHEST: Clear to auscultation. HEART: S1, S2, systolic murmur. ABDOMEN: Soft and nontender. EXTREMITIES: +1 edema. SKIN: Wrinkle both leg and erythema on the right leg extended to the knee. NEUROLOGIC: Alert. No focal . LABORATORY DATA: WBC 9.2, H and H 13.8/41.8, promise telets 265. Sodium 136, potassium 2.5, bicarb 31, BUN 94, cr eatinine 1.2. GFR of 57, phosphorus 3.1, calcium 9.6, magnesiu m 1.8 yesterday. Creatinine 1.4. GFR 45. Urinalysis, s pecific gravity 1.010, negative for infection. COVID bryanna ting was negative. CT abdomen and pelvis was done, was ne gative. Chest x-ray showed congestion with cardiomegaly. CURRENT MEDICATIONS: In the hospital include: 1. Amitriptyline. 2. Aspirin. 3. Carvedilol 25 b.i.d. 4. Lovenox. 5. Levothyroxine. 6. KCl. 7. Normal saline. HOME MEDICATIONS: 1. Plavix. 2. Losartan 50. 3. Metformin 500. 4. Nitroglycerin. 5. KCl. 6. Spironolactone. 7. Allopurinol. 8. Metoprolol. 9. Atorvastatin. 10. Carvedilol 25 b.i.d. 11. Lasix 20. 12. Levothyroxine. ASSESSMENT AND PLAN: 1. Acute kidney injury on the chronic kidney dis ease with a chronic component of secondary to cardiorenal, d iabetic nephropathy, acute kidney injury secondary to pr erenal on the recovery phase, looked to me currently on the no rmal volume. I going to decrease IV fluid to 50. I agree with h olding the Lasix and we will monitor the patient. 2. Hypertension, currently blood pressure on the lower side with the presence of acute kidney injury. Hold l osartan, hold Lasix, hold spironolactone. Continue IV fluids. Decrease carvedilol to 3.125 to avoid rebound and low blo od pressure. 3. Hypokalemia and hypomagnesemia, we will suppl ement and follow up. 4. Edema secondary to cardiorenal, we will send for protein creatinine and TSH and we will follow up the pat ient. Hold diuresis for the time being. 5. Coronary artery disease with congestive heart failure, currently look to me on the normal side. We will decrease IV fluid and hold the Lasix. 6. Diabetes as per primary. Time spend discussing with the patient , face to face , exame the patient , discusses the case with othe r bakery team member and hospitalist / sec reporting consultant , placing order [address] Wade, for allowing us to partic ipate in the care of your patient. BRANDEN/ADY /[id number]
[2022-11-16] MEDS ORDERED: NA CHLORIDE 0.9% 1,000 ML ONE (12:33)
[2022-11-16] MEDS ORDERED: dilTIAZem HCL 25 MG/5 ML VIAL IV ONE (12:37)
[2022-11-16 12:50] LABS: Absolute Lymphocytes (CBC) 2.5 K/uL (0.7-4.9); Hematocrit 45.1 % (39.6-49.0); Lymphocytes % 28.7 % (15.3-44.8); MCV 95.6 fL (80-100); MPV 9.2 fL (7.6-11.3); RBC Red Blood Cell Count 4.71 M/uL (4.33-5.43)
[2022-11-16 13:05] LABS: Albumin 3.6 g/dL (3.4-5.0); Bilirubin Direct 0.2 mg/dL (0-0.2); Bilirubin Indirect, Calculated 0.2 mg/dL (0.2-0.8); Bilirubin Total 0.4 mg/dL (0.2-1.0); Magnesium 2.2 mg/dL (1.6-2.4); Potassium 4.3 mEq/L (3.5-5.1); Protein, Total 7.9 g/dL (6.4-8.2)
--- NOTE | 2022-11-16 14:31 | RAD REPORT ---
EXAM DESCRIPTION: [place] Single View11/16/2022 1:43 pm CLINICAL HISTORY: tachycardia COMPARISON: Chest Single View dated 11/24/2018; Chest Single View dated 02/08/2017; Chest Single View dated 10/06/2016; Chest Single View dated 10/05/2016 TECHNIQUE: Portable AP view of the chest. FINDINGS: The lungs are clear. Decreased inspiratory effort somewhat limits evaluation. No pneumoth orax or effusion. The cardiomediastinal contours are unremarkable. IMPRESSION: No acute cardiopulmonary process.
--- NOTE | 2022-11-16 16:02 | ER ---
Nurse's Notes [facility] Name: Bill Groves Age: 87 yrs Sex: Male : 1935 Arrival Date: 11/16/2022 Time: 11:58 Bed 5 Private MD: Diagnosis: Atrial Fibrillation with Rapid Ventricular rate Presentation: 11/16 12:03 Chief complaint: Sent from Dr. Martini's office for HR 160s. Pt denies hb CP/SOB/palpitations/diziness. Coronavirus screen: At this time, the client does not indicate any symptoms associated with coronavirus-19. Ebola Screen: No symptoms or risks identified at this time. Initial Sepsis Screen: Does the patient meet any 2 criteria? No. Patient's initial sepsis screen is negative. Does the patient have a suspected source of infection? No. Patient's initial sepsis screen is negative. Risk Assessment: Do you want to hurt yourself or someone else? Patient reports no desire to harm self or others. Onset of symptoms was November 16, 2022. 12:03 Method Of Arrival: Wheelchair hb 12:03 Acuity: ANDI 2 hb Historical: - Allergies: 12:05 HYDRALAZINE; hb - PMHx: 12:05 Atrial Fib; CVA x4; Hypertension; hb - Immunization history:: Adult Immunizations up to date. - Social history:: Smoking status: Patient denies any tobacco usage or history of. Screenin:46 [facility] ED Fall Risk Assessment (Adult) History of falling in the last 3 months, ld1 including since admission No falls in past 3 months (0 pts). Abuse screen: Denies threats or abuse. Denies injuries from another. Nutritional screening: No deficits noted. Tuberculosis screening: No symptoms or risk factors identified. Assessment: 12:46 Reassessment: See triage assessment. ld1 12:58 General: Appears in no apparent distress. Behavior is calm, cooperative. Pain: Denies mb9 pain. Neuro: Level of Consciousness is awake, alert, obeys commands, Oriented to person, place, time, situation, Appropriate for age. Cardiovascular: Denies chest pain, palpitations, Heart tones S1 S2 present Patient's skin is warm and dry. Rhythm is regular. Respiratory: Airway is patent Respiratory effort is even, unlabored, Respiratory pattern is regular, symmetrical, Denies shortness of breath. Derm: Skin is pink, warm \T\ dry. Musculoskeletal: Range of motion: intact in all extremities. 14:33 Reassessment: No changes from previously documented assessment. Patient and/or family mb9 updated on plan of care and expected duration. Pain level reassessed. Patient is alert, oriented x 3, equal unlabored respirations, skin warm/dry/pink. 15:51 Reassessment: No changes from previously documented assessment. Patient and/or family mb9 updated on plan of care and expected duration. Pain level reassessed. Patient is alert, oriented x 3, equal unlabored respirations, skin warm/dry/pink. Vital Signs: 12:03 BP 112 / 74; Pulse 162; Resp 18; Temp 98.2(O); Pulse Ox 100% on R/A; Weight 74.84 kg; hb Height 5 ft. 10 in. ; Pain 0/10; 12:40 BP 145 / 69; Pulse 142; Resp 20; Pulse Ox 99% on R/A; mb9 12:46 BP 107 / 53; Pulse 75; Resp 18; Pulse Ox 96% on R/A; ld1 13:00 BP 112 / 61; Pulse 76; Resp 18; Pulse Ox 95% on R/A; Pain 0/10; mb9 13:51 BP 111 / 47; Pulse 74; Resp 18; Pulse Ox 97% on R/A; mb9 14:33 BP 135 / 56; Pulse 66; Resp 16; Pulse Ox 97% on R/A; mb9 15:18 BP 118 / 59; Pulse 69; Resp 16; Pulse Ox 98% on R/A; mb9 12:03 Body Mass Index 23.67 (74.84 kg, 177.8 cm) hb 12:03 Pain Scale: Adult hb 13:00 Pain Scale: Adult mb9 ED Course: 12:00 Patient arrived in ED. ts1 12:04 Walker Armstrong DO is Attending Physician. ms3 12:05 Triage completed. hb 12:05 Arm band placed on. hb 12:27 Vianca Armstrong, RN is Primary Nurse. ld1 12:42 Basic Metabolic Panel Sent. iw 12:42 CBC with Diff Sent. iw 12:42 LFT's Sent. iw 12:42 Magnesium Sent. iw 12:46 Patient has correct armband on for positive identification. Placed in gown. Bed in low ld1 position. Call light in reach. Side rails up X2. hospital monitor on. Pulse ox on. NIBP on. Door closed. Noise minimized. Warm blanket given. 12:46 No provider procedures requiring assistance completed. Inserted saline lock: 20 gauge ld1 in right forearm, using aseptic technique. Blood collected. 13:44 XRAY Chest (1 view) In Process Unspecified. EDMS 13:52 Primary Nurse role handed off by Vianca Armstrong RN mb9 13:52 Lisa Yu, DANG is Primary Nurse. mb9 16:01 Duane Bradley MD is Referral Physician. ms3 16:13 IV discontinued, intact, bleeding controlled, No redness/swelling at site. Pressure mb9 dressing applied. Administered Medications: 12:27 Drug: NS 0.9% IV 500 ml Route: IV; Rate: 1000 ml; Site: right forearm; ld1 15:52 Follow up: Response: No adverse reaction; IV Status: Completed infusion mb9 12:40 Drug: Diltiazem IVP 20 mg Route: IVP; Site: right forearm; mb9 15:52 Follow up: Response: No adverse reaction mb9 Medication: 12:46 VIS not applicable for this client. ld1 Outcome: 16:01 Discharge ordered by . ms3 16:12 Discharged to home ambulatory. mb9 16:12 Condition: stable 16:12 Discharge instructions given to patient, Instructed on discharge instructions, follow up and referral plans. Demonstrated understanding of instructions, follow-up care, medications, Prescriptions given X 1. 16:13 Patient left the ED. mb9 Signatures: Dispatcher [employer] EDNC Rachel Arreguin RN RN Lavonne Ramesh RN RN Walker Armstrong DO DO ms3 Vianca Armstrong RN RN ld1 Lisa Yu RN RN mb9 Arleen Forrester PAS PAS ts1
--- NOTE | 2022-11-16 16:02 | EDPHYS ---
Physician Documentation [facility] Name: Bill Groves Age: 87 yrs Sex: Male : 1935 Arrival Date: 11/16/2022 Time: 11:58 Bed 5 Private MD: ED Physician Walker Armstrong HPI: 11/16 12:18 This 87 yrs old Male presents to ER via Wheelchair with complaints of HIGH HEART RATE. ms3 12:18 87-year-old male with past medical history of atrial fibrillation, stroke, hypertension ms3 presents with his and daughter from Dr. Martini's office for elevated heart rate. Patient was at Dr. Shane's office for routine visit when patient's heart rate was noted to be 150-160. Patient denies pain at this time. Patient denies alleviating or inciting factors. Patient denies shortness of breath, nausea, vomiting, diaphoresis, chest pain. Historical: - Allergies: 12:05 HYDRALAZINE; hb - PMHx: 12:05 Atrial Fib; CVA x4; Hypertension; hb - Immunization history:: Adult Immunizations up to date. - Social history:: Smoking status: Patient denies any tobacco usage or history of. ROS: 12:18 Constitutional: Negative for fever, and chills. ENT: Negative for injury, pain, and ms3 discharge, Neck: Negative for injury, pain, and swelling, Cardiovascular: Negative for chest pain, and palpitations. Respiratory: Negative for shortness of breath, cough, wheezing, and pleuritic chest pain, Abdomen/GI: Negative for abdominal pain, nausea, vomiting, diarrhea, and constipation, MS/Extremity: Negative for injury and deformity, Skin: Negative for injury, rash, and discoloration, Neuro: Negative for headache, weakness, numbness, tingling. 12:18 All other systems are negative. Exam: 12:18 Constitutional: This is a well developed, well nourished patient who is awake, alert, ms3 and in no acute distress. Head/Face: Normocephalic, atraumatic. Neck: Trachea midline, no cervical lymphadenopathy. Supple, full range of motion without nuchal rigidity, or vertebral point tenderness. No Meningismus. Chest/axilla: Normal chest wall appearance and motion. Nontender with no deformity. Respiratory: Lungs have equal breath sounds bilaterally, clear to auscultation and percussion. No rales, rhonchi or wheezes noted. No increased work of breathing, no retractions or nasal flaring. Abdomen/GI: Soft, non-tender, with normal bowel sounds. No distension or tympany. No guarding or rebound. No evidence of tenderness throughout. Skin: Warm, dry with normal turgor. Normal color with no rashes, no lesions, and no evidence of cellulitis. MS/ Extremity: Pulses equal, no cyanosis. Neurovascular intact. Full, normal range of motion. 12:18 Cardiovascular: Rate: tachycardic, Rhythm: regular, Pulses: no pulse deficits are appreciated, Heart sounds: normal, normal S1and S2. 12:25 ECG was reviewed by the Attending Physician. ms3 Vital Signs: 12:03 BP 112 / 74; Pulse 162; Resp 18; Temp 98.2(O); Pulse Ox 100% on R/A; Weight 74.84 kg; hb Height 5 ft. 10 in. ; Pain 0/10; 12:40 BP 145 / 69; Pulse 142; Resp 20; Pulse Ox 99% on R/A; mb9 12:46 BP 107 / 53; Pulse 75; Resp 18; Pulse Ox 96% on R/A; ld1 13:00 BP 112 / 61; Pulse 76; Resp 18; Pulse Ox 95% on R/A; Pain 0/10; mb9 13:51 BP 111 / 47; Pulse 74; Resp 18; Pulse Ox 97% on R/A; mb9 14:33 BP 135 / 56; Pulse 66; Resp 16; Pulse Ox 97% on R/A; mb9 15:18 BP 118 / 59; Pulse 69; Resp 16; Pulse Ox 98% on R/A; mb9 12:03 Body Mass Index 23.67 (74.84 kg, 177.8 cm) hb 12:03 Pain Scale: Adult hb 13:00 Pain Scale: Adult mb9 MDM: 12:17 Patient medically screened. ms3 12:18 Differential diagnosis: arrythmia, dehydration. ms3 15:17 ED course: Discussed case with Dr Bradley. Check TSH. If normal patient can follow up in ms3 office.. 15:58 Data reviewed: vital signs, nurses notes, lab test result(s), EKG, radiologic studies, ms3 and as a result, I will discharge patient. Consideration of Admission/Observation Escalation of care including admission/observation considered. Management of patient was discussed with the following: Patrol Captain: Dr Bradley. I considered the following discharge prescriptions or medication management in the emergency department Medications were administered in the Emergency Department. See MAR. Independent interpretation of the following test(s) in the Emergency Department X-Ray: My interpretation is CXR images reviewed by me neg acute. Historians other than the Patient: Spouse/Significant Other: . Daughter/Son: . Counseling: I had a detailed discussion with the patient and/or guardian regarding: the historical points, exam findings, and any diagnostic results supporting the discharge/admit diagnosis, lab results, radiology results, the need for outpatient follow up, to return to the emergency department if symptoms worsen or persist or if there are any questions or concerns that arise at home. Response to treatment: the patient's symptoms have resolved after treatment, and as a result, I will discharge patient. Special discussion: I discussed with the patient/guardian in detail that at this point there is no indication for admission to the hospital. It is understood, however, that if the symptoms persist or worsen the patient needs to return immediately for re-evaluation. 16:02 ED course: Patient TSH normal. Discussed labs, chest x-ray, EKG with patient and his ms3 family. Patient to follow-up with Dr. Bradley in 1 to 2 days. Patient's family understands and agrees with plan. All questions were answered. Return precautions discussed include worsening symptoms, or any other concerns.. 16:12 ED course: Patient's medication list: Levothyroxine 75 mcg, losartan 25 mghalf tablet, ms3 Xarelto 15 mg, gabapentin 15 mg quetiapine 25 mg. 11/16 12:17 Order name: Basic Metabolic Panel; Complete Time: 13:23 ms3 11/16 12:17 Order name: CBC with Diff; Complete Time: 13:23 ms3 11/16 12:17 Order name: LFT's; Complete Time: 13:23 ms3 11/16 12:17 Order name: Magnesium; Complete Time: 13:23 ms3 11/16 15:17 Order name: TSH; Complete Time: 15:58 ms3 11/16 12:17 Order name: XRAY Chest (1 view); Complete Time: 14:37 ms3 11/16 12:17 Order name: EKG; Complete Time: 12:17 ms3 11/16 12:17 Order name: Cardiac monitoring; Complete Time: 12:24 ms3 11/16 12:17 Order name: EKG - Nurse/Tech; Complete Time: 12:24 ms3 11/16 12:17 Order name: IV Saline Lock; Complete Time: 12:24 ms3 11/16 12:17 Order name: Labs collected and sent; Complete Time: 12:42 ms3 11/16 12:17 Order name: O2 Per Protocol; Complete Time: 12:24 ms3 11/16 12:17 Order name: O2 Sat Monitoring; Complete Time: 12:24 ms3 EC:25 Rate is 156 beats/min. Rhythm is regular. QRS [place] is Normal. QRS interval is normal. ms3 Clinical impression: SVT. Interpreted by me. Reviewed by me. Administered Medications: 12:27 Drug: NS 0.9% IV 500 ml Route: IV; Rate: 1000 ml; Site: right forearm; ld1 15:52 Follow up: Response: No adverse reaction; IV Status: Completed infusion mb9 12:40 Drug: Diltiazem IVP 20 mg Route: IVP; Site: right forearm; mb9 15:52 Follow up: Response: No adverse reaction mb9 Disposition Summary: 11/16/22 16:01 Discharge Ordered Location: Home ms3 Condition: Stable ms3 Diagnosis - Atrial Fibrillation with Rapid Ventricular rate ms3 Followup: ms3 - With: Duane Bradley MD - When: 1 - 2 days - Reason: Recheck today's complaints Discharge Instructions: - Discharge Summary Sheet ms3 - Atrial Fibrillation, [id number] ms3 Forms: - Medication Reconciliation Form ms3 - Thank You Letter ms3 - Antibiotic Education ms3 - Prescription Opioid Use ms3 Prescriptions: - Metoprolol Tartrate 25 mg Oral Tablet - take 1 tablet by ORAL route 2 times per day with a meal; 20 tablet; Refills: 0, ms3 Product Selection Permitted Critical care time excluding procedures: 20:23 Critical care time: Bedside Care: 20 minutes, Consultation: 10 minutes, Family ms3 Intervention: 10 minutes. Total time: 40 minutes Signatures: Dispatcher [employer] EDLavonne Corona RN RN Walker Moreno DO DO ms3 Vianca Armstrong RN RN ld1 Lisa Yu RN RN mb9 Corrections: (The following items were deleted from the chart) 20:23 16:01 Critical care time: Bedside Care: 20 minutes, Consultation: 5 minutes, Family ms3 Intervention: 10 minutes. Total time: 35 minutes ms3
[2022-11-16 16:19] VITALS: TEMP 98.2
[2022-11-16 16:26] VITALS: BP 118/59; O2SAT 98
--- NOTE | 2022-11-18 14:52 | EKG ---
Test Date: 2022-11-16 Test Time: 12:20:32 Mark Up Designer: YOSELYN MEASUREMENT RESULTS: Intervals: Rate: 156 DC: QRSD: 80 QT: 286 QTc: 460 [place]: P: DC: QRS: 19 T: 209 INTERPRETIVE STATEMENTS: Supraventricular tachycardia Marked ST abnormality, possible inferolateral subendocardial injury Abnormal ECG Compared to ECG 11/24/2018 15:05:50 Sinus rhythm no longer present Prolonged QT interval no longer present ST (T wave) deviation still present Electronically Signed On 11-18-22 14:45:14 CDT by Ceasar Shah
== END 2022-11-16 16:13 | disposition home or self-care (01) ==
LOC: ER 11:58
DX: I48.20 Chronic atrial fibrillation, unspecified (principal); I10 Essential (primary) hypertension; R06.02 Shortness of breath; R11.2 Nausea with vomiting, unspecified; R61 Generalized hyperhidrosis; R07.9 Chest pain, unspecified; Z88.8 Allergy status to other drugs, medicaments and biological substances
CPT/HCPCS: 96361; 93005; 85025; 80048; 36415; 83735; 80076; 84443; 71045; 96374; 99285; J7030